=== PATIENT | male | born 1950 | race Two or more races ===

== ENCOUNTER 2018-01-07 09:17 | Emergency (ER) | payer MEDICARE ==
[2016-05-14 11:09] VITALS: Wt 71.2 kg
[2018-01-07] MEDS ORDERED: ALBUTEROL/IPRATROPIUM 3 ML NEB ONE (09:31)
[2018-01-07] MEDS ORDERED: ASPIRIN 81 MG CHEW PO ONE (09:35)
[2018-01-07] MEDS ORDERED: ALBUTEROL/IPRATROPIUM 3 ML NEB NEB ONE (09:35)
--- NOTE | 2018-01-07 09:57 | EKG ---
FACILITY: PATIENT NAME: MICHAEL OLGUIN : [id number] MR: [id number] V: [id number] EXAM DATE: ORDERING PHYSICIAN: FRANCY VELA TECHNOLOGIST: Test Reason : SOB Blood Pressure : / mmHG Vent. Rate : 134 BPM Atrial Rate : 134 BPM P-R Int : 152 ms QRS Dur : 066 ms QT Int : 282 ms P-R-T Axes : 084 049 085 degrees QTc Int : 421 ms Sinus tachycardia with occasional premature ventricular complexes Possible biatrial enlargement Indeterminate axis Low voltage QRS Poor R wave progression anteriorly Artifact in several leads - repeat if needed Abnormal ECG Confirmed by KRISHAN TEAGUE ([id number]) on 01/07/2018 2:47:43 PM Referred By: Confirmed By:KRISHAN TEAGUE
[2018-01-07] MEDS ORDERED: NS(*) 0.9% 1000 ML BAG 1,000 ML IV ONE ×2 (10:10→11:30)
--- NOTE | 2018-01-07 10:19 | ER Report ---
History and Physical Time Seen By MD: 09:25 Hx. of Stated Complaint: TROUBLE BREATHING HPI/ROS CHIEF COMPLAINT: Dysphagia HISTORY OF PRESENT ILLNESS: Patient is a 67-year-old male who presents emergency department complaining of difficulty swallowing, chest pressure pain and shortness of breath. Patient states over the last 3-4 days he is unable to swallow solid food although is tolerating liquids. Patient states he's had similar symptoms in the past and has had a "medical workup". He states that he had some type of study that showed he had narrowing in the esophagus but no obstruction. He was told to follow up and never did. There is a history of cardiac disease in the family. Patient also has a history of asthma and COPD and uses breathing treatments with exacerbations of shortness of breath. Patient states he's been noticing decrease in oral intake over the past 3-4 days including solid and liquids. He notes decreasing urine output and decrease in bowel movements. He denies abdominal pain. He denies fevers or chills. REVIEW OF SYSTEMS: Constitutional: No fever, no chills. Eyes: No discharge. ENT: No sore throat. Dysphagia Cardiovascular: Substernal chest pain, no palpitations Respiratory: Shortness of breath was following no cough Gastrointestinal: No abdominal pain, no vomiting. Genitourinary: No hematuria. Musculoskeletal: No back pain. Skin: No rashes. Neurological: No headache. Allergies: Coded Allergies: morphine (Unverified Allergy, Mild, 07/20/16) Home Meds Active Scripts Prednisone 10 Mg Tab (PREDNISONE 10 MG TAB) 10 Mg Tablet, 10 MG PO BID, #30 TAB 3 tabs qd X 3d 05/18, then 2 tabs qd X 3d, then 1.5 tabs qd X 4 days, then one tab daily until follow up with PCP. Prov:CHARLES TEAGUE MD 05/17/16 Omeprazole (OMEPRAZOLE) 20 Mg Tablet.dr, 20 MG PO QDAY, #30 TAB Prov:CHARLES TEAGEU MD 05/17/16 Guaifenesin (MUCINEX) 600 Mg Tablet.er, 600 MG PO BID, #20 TAB Prov:CHARLES TEAGUE MD 05/17/16 Aspirin (ASPIRIN EC) 81 Mg Tablet.dr, 81 MG PO QDAY, #30 TAB Prov:CHARLES TEAGUE MD 05/17/16 Reported Medications Prednisone (PREDNISONE) 20 Mg Tablet, 40 MG PO QDAY, TAB 05/14/16 Budesonide/Formoterol Fumarate (SYMBICORT 160-4.5 MCG INHALER) 10.2 Gm Inh, 10.2 GM INH QDAY, INH 05/14/16 Albuterol Sulfate 90 Mcg/Act (PROAIR HFA 90 MCG/ACT) 8.5 Gm Hfa.aer.ad, 1 PUFF IH DAILY, INHALER 05/14/16 Albuterol Sulfate 0.083% (ALBUTEROL SULFATE 0.083%) 2.5 Mg/3 Ml Vial.neb, 2.5 MG INH Q2H Y for SHORTNESS OF BREATH, INH 05/14/16 Ibuprofen (IBUPROFEN) 400 Mg Tablet, 1 TAB PO BID Y for PAIN, TAB 05/13/16 Pravastatin Sodium (PRAVASTATIN SODIUM) 80 Mg Tablet, 1 TAB PO DAILY, #30 05/13/16 Metoprolol Succinate (METOPROLOL SUCCINATE) 50 Mg Tab.er.24h, 1 TAB PO DAILY, # 30 05/13/16 Hydrochlorothiazide (HYDROCHLOROTHIAZIDE) 25 Mg Tablet, 1 TAB PO DAILY, #30 05/13/16 Enalapril Maleate (ENALAPRIL MALEATE) 20 Mg Tablet, 1 TAB PO DAILY, #45 05/13/16 Tiotropium [place] 2.5 MCG/ACT (Spiriva Respimat 2.5 MCG/ACT) 4 Gm Mist.inhal, 1 PUFF INH, #4 05/13/16 Discontinued Scripts Cefuroxime Axetil (CEFUROXIME) 500 Mg Tablet, 500 MG PO BID, #12 TAB Prov:CHARLES TEAGUE MD 05/17/16 Azithromycin (AZITHROMYCIN) 500 Mg Tablet, 1 TAB PO QDAY, #6 TAB Prov:CHARLES TEAGUE MD 05/17/16 Past Medical/Surgical History Medical history for esophageal reflux disease, asthma and COPD., History of hypertension Hx Smoking: Yes Smoking Status: Former Smoker Exposure to Second Hand Smoke?: Yes Hx Substance Use Disorder: No Hx Alcohol Use: No Constitutional Vital Sign - Last 24 Hours 01/07/18 01/07/18 01/07/18 01/07/18 09:17 09:24 09:27 09:32 Temp 97.7 Pulse ??? 144 123 Resp 30 19 B/P (MAP) 140/115 (123) 140/115 Pulse Ox 98 91 O2 Delivery Nasal Cannula 01/07/18 01/07/18 01/07/18 01/07/18 09:46 09:47 09:58 09:58 Pulse ??? 134 Resp 28 17 B/P (MAP) 116/100 (105) Pulse Ox 99 97 O2 Delivery Nasal Cannula O2 Flow Rate 2.0 01/07/18 01/07/18 01/07/18 01/07/18 10:00 10:02 10:02 10:15 Pulse 144 Resp 21 B/P (MAP) 93/69 (77) 105/87 (93) Pulse Ox 95 O2 Flow Rate 2.0 01/07/18 01/07/18 01/07/18 01/07/18 10:17 10:30 10:40 10:47 Pulse 131 132 Resp 21 41 B/P (MAP) 129/115 (120) 134/88 (103) Pulse Ox 95 93 01/07/18 01/07/18 01/07/18 01/07/18 10:52 11:00 11:07 11:20 Pulse 137 138 Resp 28 37 B/P (MAP) 111/92 (98) 87/70 (76) Pulse Ox 93 90 01/07/18 01/07/18 01/07/18 01/07/18 11:22 11:37 11:40 11:52 Pulse ? 109 Resp 23 22 12 B/P (MAP) ???/??? (9242) Pulse Ox 96 98 01/07/18 01/07/18 01/07/18 01/07/18 12:00 12:07 12:16 12:20 Pulse ??? B/P (MAP) ???/??? (6665) 146/114 (125) 105/77 (86) Physical Exam General/Constitutional: Patient is awake, alert, nontoxic and in no acute respiratory distress. Head: Normocephalic and atraumatic. Eyes: Conjunctival clear, Pupils are equal and reactive to light. Sclera are clear and anicteric. Ears:External canals are clear. Tympanic membranes are clear with normal landmarks and light reflex. Nares: No rhinorrhea or bleeding. Turbinates are pink and moist. Oropharyngeal: Mucous membranes are moist. There is no pharyngeal erythema or exudate. There are no palatal petechiae. Uvula is midline and symmetrical. Neck: Supple, no adenopathy. Cardiovascular: Heart is regular rate and rhythm without audible murmurs, rubs or gallops. Pulmonary: Lungs are clear to auscultation bilaterally. There are no wheezes, rales, or rhonchi. Chest rise is symmetrical Abdomen: Soft, nontender, no guarding or peritoneal signs. Extremities: No gross deformities, No peripheral cyanosis. Able to move all 4 extremities. Neuro: Alert and oriented X3, Skin: No rashes, skin is warm dry and well perfused. Medical Decision Making Data Points Result Diagram: 01/07/18 1000 01/07/18 1100 Laboratory Hematology Test 01/07/18 10:00 01/07/18 11:00 01/07/18 11:46 Red Blood Count 6.98 M/uL (4.00-5.60) Mean Corpuscular Volume 82.7 fL (80.0-96.0) Mean Corpuscular Hemoglobin 27.8 pg (26.0-33.0) Mean Corpuscular Hemoglobin Concent 33.6 g/dL (32.0-36.0) Red Cell Distribution Width 14.7 % (11.5-14.5) Mean Platelet Volume 7.9 fL (7.2-11.1) Neutrophils (%) (Auto) 85.4 % (39.4-72.5) Lymphocytes (%) (Auto) 6.1 % (17.6-49.6) Monocytes (%) (Auto) 7.3 % (4.1-12.4) Eosinophils (%) (Auto) 0.1 % (0.4-6.7) Basophils (%) (Auto) 1.1 % (0.3-1.4) Nucleated RBC Relative Count (auto) 0.1 /100WBC Neutrophils # (Auto) 13.5 K/uL (2.0-7.4) Lymphocytes # (Auto) 1.0 K/uL (1.3-3.6) Monocytes # (Auto) 1.2 K/uL (0.3-1.0) Eosinophils # (Auto) 0.0 K/uL (0.0-0.5) Basophils # (Auto) 0.2 K/uL (0.0-0.1) Nucleated RBC Absolute Count (auto) 0.02 K/uL B-Type Natriuretic Peptide 93 pg/ml (0-100) Prothrombin Time 13.4 seconds (12.0-14.4) Prothromb Time International Ratio 1.02 Activated Partial Thromboplast Time 27 seconds (23-35) Sodium Level 157 mmol/L (137-145) Potassium Level 4.1 mmol/L (3.5-5.0) Chloride Level 106 mmol/L (98-107) Carbon Dioxide Level 25 mmol/L (22-30) Blood Urea Nitrogen 50 mg/dl (9-21) Creatinine 1.90 mg/dl (0.66-1.25) Glomerular Filtration Rate Calc 35.5 Random Glucose 125 mg/dl (75-110) Calcium Level 10.3 mg/dl (8.4-10.2) Total Bilirubin 0.8 mg/dl (0.2-1.3) Aspartate Amino Transf (AST/SGOT) 49 U/L (0-35) Alanine Aminotransferase (ALT/SGPT) 17 U/L (0-56) Alkaline Phosphatase 116 U/L (0-126) Troponin I < 0.012 ng/ml Total Protein 9.0 g/dl (6.3-8.2) Albumin 5.0 g/dl (3.5-5.0) Osmolality 345 mOSM/K (275-295) Magnesium Level 2.9 mg/dl (1.7-2.2) Serum Alcohol < 10 mg/dl Chemistry Test 01/07/18 10:00 01/07/18 11:00 01/07/18 11:46 White Blood Count 15.8 k/uL (4.5-11.0) Red Blood Count 6.98 M/uL (4.00-5.60) Hemoglobin 19.4 g/dL (14.0-18.0) Hematocrit 57.7 % (42.0-52.0) Mean Corpuscular Volume 82.7 fL (80.0-96.0) Mean Corpuscular Hemoglobin 27.8 pg (26.0-33.0) Mean Corpuscular Hemoglobin Concent 33.6 g/dL (32.0-36.0) Red Cell Distribution Width 14.7 % (11.5-14.5) Platelet Count 451 K/uL (150-450) Mean Platelet Volume 7.9 fL (7.2-11.1) Neutrophils (%) (Auto) 85.4 % (39.4-72.5) Lymphocytes (%) (Auto) 6.1 % (17.6-49.6) Monocytes (%) (Auto) 7.3 % (4.1-12.4) Eosinophils (%) (Auto) 0.1 % (0.4-6.7) Basophils (%) (Auto) 1.1 % (0.3-1.4) Nucleated RBC Relative Count (auto) 0.1 /100WBC Neutrophils # (Auto) 13.5 K/uL (2.0-7.4) Lymphocytes # (Auto) 1.0 K/uL (1.3-3.6) Monocytes # (Auto) 1.2 K/uL (0.3-1.0) Eosinophils # (Auto) 0.0 K/uL (0.0-0.5) Basophils # (Auto) 0.2 K/uL (0.0-0.1) Nucleated RBC Absolute Count (auto) 0.02 K/uL B-Type Natriuretic Peptide 93 pg/ml (0-100) Prothrombin Time 13.4 seconds (12.0-14.4) Prothromb Time International Ratio 1.02 Activated Partial Thromboplast Time 27 seconds (23-35) Glomerular Filtration Rate Calc 35.5 Calcium Level 10.3 mg/dl (8.4-10.2) Total Bilirubin 0.8 mg/dl (0.2-1.3) Aspartate Amino Transf (AST/SGOT) 49 U/L (0-35) Alanine Aminotransferase (ALT/SGPT) 17 U/L (0-56) Alkaline Phosphatase 116 U/L (0-126) Troponin I < 0.012 ng/ml Total Protein 9.0 g/dl (6.3-8.2) Albumin 5.0 g/dl (3.5-5.0) Osmolality 345 mOSM/K (275-295) Magnesium Level 2.9 mg/dl (1.7-2.2) Serum Alcohol < 10 mg/dl Coagulation Test 01/07/18 11:00 Prothrombin Time 13.4 seconds Prothromb Time International Ratio 1.02 Activated Partial Thromboplast Time 27 seconds Toxicology Test 01/07/18 11:46 Serum Alcohol < 10 mg/dl EKG/Imaging EKG Interpretation EKG shows sinus tachycardia with occasional PVCs. No significant ST segment or T -wave abnormalities noted. Monitor Interpretation: Sinus Tachycardia Imaging FACILITY: [facility] PATIENT NAME: Carlos Prince : 09/29/1973 MR: [id number] V: [id number] EXAM DATE: [id number] ORDERING PHYSICIAN: FRANCY VELA TECHNOLOGIST: Location: [facility] [place] Patient: Carlos Prince : 09/29/1973 Visit/Account:[id number] Date of Sevice: 01/07/2018 Exam type: ELBOW 3 VIEWS RIGHT History: pain; radial head, no known injury Comparison: None. Findings: There is no evidence of a joint effusion. There is a thin horizontal sclerotic band traversing the right radial head which could represent a growth plate remnant or possibly the sequelae of old trauma. No evidence of acute fracture seen. No significant arthritic change identified right elbow joint IMPRESSION: 1. Thin horizontal sclerotic band traverses the right radial head which could represent a growth plate remnant or possibly the sequelae of old trauma. No acute appearing fractures identified. No evidence of a joint effusion Report Dictated By: Jacinta Freed MD at 01/07/2018 9:12 AM Report E-Signed By: Jacinta Freed MD at 01/07/2018 9:14 AM WSN:[email or web address] FACILITY: [facility] PATIENT NAME: Eduardo Hankins : 1950 MR: [id number] V: [id number] EXAM DATE: ORDERING PHYSICIAN: FRANCY VELA TECHNOLOGIST: Location: [facility] [place] Patient: Eduardo Hankins : 1950 Visit/Account:[id number] Date of Sevice: 01/07/2018 Exam type: ESOPHAGRAM History: dysphagia Comparison: May 15, 2016. Findings: The patient received two small sips of thin barium demonstrating complete obstruction at the junction of the middle distal thirds of the left esophagus. The margins appear irregular. Although this could represent retained food bolus given the prior findings of this high-grade narrowing this finding is extremely concerning for malignancy. The fluoroscopy dose area product was 42.59 micro-Chairez per meter squared IMPRESSION: 1. There is complete obstruction at the junction of middle distal thirds of the esophagus with irregular margins concerning for malignancy Report Dictated By: Jacinta Freed MD at 01/07/2018 12:24 PM Report E-Signed By: Jacinta Freed MD at 01/07/2018 12:56 PM WSN:[email or web address] ED Course/Re-evaluation ED Course 01/07/2018 12:42:35 pm spoke with our general surgeon Dr. Tom Oconnell; history physical exam, pertinent lab data and imaging studies were discussed. Patient was esophageal obstruction. He states that he is able to do diagnostic endoscopies but does not do dilatation which is what the patient most likely will require. He recommends transfer to a higher level of care. Patient and family were made aware they have no questions or concerns at time of disposition. 01/07/2018 1:42:15 pm I spoke with [facility] regarding this patient. Beds are full but they have accepted the patient at [facility] at this time. Patient with esophageal obstruction likely secondary to carcinoma. They have accepted the patient. Family and patient made aware of transfer no questions or concerns at time of disposition. Decision to Disposition Date: Jan 07, 2018 Decision to Disposition Time: 13:41 Depart Departure Latest Vital Signs Vital Signs Date Time Temp Pulse Resp B/P (MAP) Pulse Ox O2 Delivery O2 Flow Rate FiO2 01/07/18 12:20 105/77 (86) 01/07/18 12:07 ??? 01/07/18 11:52 12 98 01/07/18 10:02 2.0 01/07/18 09:58 Nasal Cannula 01/07/18 09:27 97.7 Impression: Primary Impression: Esophageal obstruction Condition: Condition Unchanged Disposition: XFER TO [facility] (to [facility] for eval/tx) FRANCY VELA MD Jan 07, 2018 10:19
[2018-01-07 10:42] LABS: PLATELET COUNT, AUTOMATED 451 K/uL (150-450)
[2018-01-07 11:16] LABS: INR 1.02
--- NOTE | 2018-01-07 12:02 | RADIOLOGY IMAGING REPORT ---
FACILITY: [facility] [place]IENT NAME: Eduardo Hankins : 1950 MR: [id number] V: [id number] EXAM DATE: ORDERING PHYSICIAN: FRANCY VELA TECHNOLOGIST: [place] [facility] [place]: Eduardo Hankins : 1950 Visit/Account:[id number] Date of Sevice: 01/07/2018 Study: Frontal and lateral views of the chest Indication: Cough Comparison study: May 13, 2016 Findings: PA and lateral views of the chest demonstrate no evidence of acute infiltrate. There is no evidence of pleural effusion. There is no evidence of pneumothorax. The mediastinal, cardiac, and diaphragmatic contours are unremarkable. The visualized bony structures are unremarkable. There are mild degenerative changes of the thoracic spine noted. IMPRESSION: Unremarkable chest. Report Dictated By: Jarret Candelaria at 01/07/2018 11:56 AM Report E-Signed By: Jarret Candelaria at 01/07/2018 11:57 AM WSN:[id number]
[2018-01-07] MEDS ORDERED: BARIUM SULFATE 340 GM POWD ONE (12:05)
[2018-01-07] MEDS ORDERED: BARIUM SULFATE 176 GM BTL PO ONE (12:05)
--- NOTE | 2018-01-07 13:01 | RADIOLOGY IMAGING REPORT ---
FACILITY: [facility] PATIENT NAME: Eduardo Hankins : 1950 MR: [id number] V: [id number] EXAM DATE: ORDERING PHYSICIAN: FRANCY VELA TECHNOLOGIST: Location: [facility] [place] Patient: Eduardo Hankins : 1950 Visit/Account:[id number] Date of Sevice: 01/07/2018 Exam type: ESOPHAGRAM History: dysphagia Comparison: May 15, 2016. Findings: The patient received two small sips of thin barium demonstrating complete obstruction at the junction of the middle distal thirds of the left esophagus. The margins appear irregular. Although this cou ld represent retained food bolus given the prior findings of this high-grade narrowing this finding i s extremely concerning for malignancy. The fluoroscopy dose area product was 42.59 micro-Chairez per meter squared IMPRESSION: 1. There is complete obstruction at the junction of middle distal thirds of the esophagus with irreg ular margins concerning for malignancy Report Dictated By: Jacinta Freed MD at 01/07/2018 12:24 PM Report E-Signed By: Jacinta Freed MD at 01/07/2018 12:56 PM WSN:[email or web address]
[2018-01-07] MEDS ORDERED: LORazepam 2 MG/ML VIAL IVP ONE (13:15)
[2018-01-07] MEDS ORDERED: fentaNYL CITR 100 MCG/2 ML AMP IVP ONE (13:15)
== END 2018-01-07 14:25 | disposition short-term general hospital (02) ==
LOC: ER 09:31
DX: K22.2 Esophageal obstruction (principal); R05 Cough; I10 Essential (primary) hypertension
CPT/HCPCS: 36415; 71046; 74220; 83735; 83880; 83930; 84484; 85025; 85610; 85730; 93005; 94640; 96361; 96374; 96375; 99285; A9270; G0480; J2060; J3010; J7030; 80320; 82040; 82247; 82310; 82374; 82435; 82565; 82947; 84075; 84132; 84155; 84295; 84450; 84460; 84520

== ENCOUNTER → 2018-01-07 | Outpatient (CLI) | payer MEDICARE ==
[2016-05-14 11:09] VITALS: BMI 27.8
[~2018-01-07] MED LIST: ACE325 PO; ALBU2.5V36 IH; ALBU2.5V36 INH; ALBU8.5H IH; ALBU8.5H PO; ASP325 PO; ASPI81TA86 PO; AZIT-18 PO; AZIT500T47 PO; BACDS PO; BUDE10.2 INH; BUDE10.2 PO; CEFU500T10 PO; ENAL1TAB35 PO; ENAL20TA99 PO; FLUT1DIS28 PO; FLUT1DIS29 IH; GUAI600T57 PO; HYDR-2966 PO; IBUP400T13 PO; METO50TA19 PO; OMEP-125 PO; OMEP-137 PO; PRAV80TA29 PO; PRED-1 PO; PRED20TA6 PO; TAMS0.4C70 PO; TIOT4MIS2 INH
== END ==
LOC: AMB 14:25
PROVIDERS: ATTEND Nurse Practitioner
DX: R13.10 Dysphagia, unspecified (principal); K22.2 Esophageal obstruction; R25.1 Tremor, unspecified
CPT/HCPCS: A0425; A0426

== ENCOUNTER 2018-02-07 03:43 | Day surgery (SDC) | payer MEDICARE ==
[2016-05-14 11:09] VITALS: Ht 165.1 cm; Wt 62.1 kg
[2018-02-07] VITALS (7 sets, daily range): BP systolic 107–126; BP diastolic 69–77
[~2018-02-07] VITALS: Ht 165.1 cm; Wt 62.1 kg
[~2018-02-07 03:43] MED LIST changes: +ALB18R INH; +FLUT1AER INH; +ONDA4TAB97 PO; +PROC5TAB2 PO; +TRAM-420 PO
[2018-02-07] MEDS ORDERED: ceFAZolin(*) 2GM/D5W 50ML 50 ML IVPB ONE (06:30)
[2018-02-07] MEDS ORDERED: NORMOSOL R SOLN(*) 1000 ML BAG 1,000 ML IV PRN (06:30)
[2018-02-07] MEDS ORDERED: LIDOCAINE/SOD BICARB 8.4% SYR ID ONE (06:30)
[2018-02-07] MEDS ORDERED: FAMOTIDINE 20 MG TAB PO ONE (06:30)
[2018-02-07] MEDS ORDERED: MIDAZOLAM 2 MG/2 ML VIAL IVP PRN (06:30)
[2018-02-07] MEDS ORDERED: HEPARIN SOD LCK FLSH 100 UN/ML ONE (06:49)
[2018-02-07] MEDS ORDERED: NS(*) 0.9% 10 ML VIAL 20 ML ONE (06:50)
[2018-02-07] MEDS ORDERED: ROPIVACAINE 0.5% 20 ML VIAL ONE (06:50)
[2018-02-07] MEDS ORDERED: REMIFENTANIL HCL 1 MG VIAL ONE (07:33)
[2018-02-07] MEDS ORDERED: MIDAZOLAM 2 MG/2 ML VIAL ONE (07:38)
[2018-02-07] MEDS ORDERED: METOPROLOL TART 5 MG/5 ML VIAL ONE (08:09)
[2018-02-07] MEDS ORDERED: PROPOFOL EMUL(*) 10MG/ML 20 ML 20 ML ONE (08:10)
[2018-02-07] MEDS ORDERED: ONDANSETRON 4 MG/2 ML VIAL ONE (08:10)
[2018-02-07] MEDS ORDERED: DEXAMETHASONE SOD PHOS 10MG/ML ONE (08:10)
[2018-02-07] MEDS ORDERED: FLUMAZENIL 0.1 MG/ML 5 ML VIAL ONE (08:25)
[2018-02-07] MEDS ORDERED: OXYC-373 PO (08:38)
--- NOTE | 2018-02-07 08:43 | Short(Outpt) Discharge Summary ---
Discharge Summary Reason for Hosp/Final Diag: (1) Esophageal cancer, stage IV Status: Chronic Hospital Course & Plan: Right IJ Power Port placement completed without problems. Departure Discharge to: Home, Self Care Discharge Instructions Home Meds Active Scripts Oxycodone Hcl/Acetaminophen (OXYCODONE-ACETAMINOPHEN 5-325) 1 Each Tablet, 1 TAB PO Q4H PRN for PAIN, #20 TAB 0 Refills Prov:JOSE BETANCOURT MD 02/07/18 Tramadol Hcl (TRAMADOL HCL) 50 Mg Tablet, 50-100 MG PO Q4-6H, #60 TAB Prov:CHARLIE ARREAGA MD 01/27/18 Omeprazole (OMEPRAZOLE) 20 Mg Tablet., 20 MG PO QDAY, #30 TAB Prov:CHARLES TEAGUE MD 05/17/16 Aspirin (ASPIRIN EC) 81 Mg Tablet.dr, 81 MG PO QDAY, #30 TAB Prov:CHARLES TEAGUE MD 05/17/16 Reported Medications Fluticasone/Vilanterol 100/25 Mcg/Inh (BREO ELLIPTA 100/25 MCG) 1 Each Aer.pow.ba, 1 INH INH BID, INH 02/05/18 Albuterol Sulfate (VENTOLIN HFA) 18 Gm Inh, 2 PUFF INH Q4-6H PRN for DYSPNEA, INH 02/05/18 Albuterol Sulfate 90 Mcg/Act (PROAIR HFA 90 MCG/ACT) 8.5 Gm Hfa.aer.ad, 1 PUFF IH DAILY, INHALER 05/14/16 Albuterol Sulfate 0.083% (ALBUTEROL SULFATE 0.083%) 2.5 Mg/3 Ml Vial.neb, 2.5 MG INH Q2H PRN for SHORTNESS OF BREATH, INH 05/14/16 Pravastatin Sodium (PRAVASTATIN SODIUM) 80 Mg Tablet, 1 TAB PO DAILY, #30 05/13/16 Metoprolol Succinate (METOPROLOL SUCCINATE) 50 Mg Tab.er.24h, 1 TAB PO DAILY, #30 05/13/16 Hydrochlorothiazide (HYDROCHLOROTHIAZIDE) 25 Mg Tablet, 1 TAB PO DAILY, #30 05/13/16 Enalapril Maleate (ENALAPRIL MALEATE) 20 Mg Tablet, 1 TAB PO DAILY, #45 05/13/16 Discontinued Reported Medications Prednisone (PREDNISONE) 20 Mg Tablet, 40 MG PO QDAY, TAB 12/26/16 Budesonide/Formoterol Fumarate (SYMBICORT 160-4.5 MCG INHALER) 10.2 Gm Inh, 10.2 GM INH QDAY, INH 05/14/16 Ibuprofen (IBUPROFEN) 400 Mg Tablet, 1 TAB PO BID PRN for PAIN, TAB 05/13/16 Tiotropium Cassatt 2.5 MCG/ACT (Spiriva Respimat 2.5 MCG/ACT) 4 Gm Mist.inhal, 1 PUFF INH, #4 05/13/16 Discontinued Scripts Ondansetron Hcl (ZOFRAN) 4 Mg Tablet, 4 MG PO Q6H PRN for NAUSEA, #30 TAB 2 Refills Prov:CHARLIE ARREAGA MD 01/27/18 Prochlorperazine Maleate (Compazine) 5 Mg Tablet, 5-10 MG PO Q6H PRN for NAUSEA, #30 TAB 5 Refills Prov:HCARLIE ARREAGA MD 01/27/18 Prednisone 10 Mg Tab (PREDNISONE 10 MG TAB) 10 Mg Tablet, 10 MG PO BID, #30 TAB 3 tabs qd X 3d 05/18, then 2 tabs qd X 3d, then 1.5 tabs qd X 4 days, then one tab daily until follow up with PCP. Prov:CHARLES TEAGUE MD 05/17/16 Guaifenesin (MUCINEX) 600 Mg Tablet.er, 600 MG PO BID, #20 TAB Prov:CHARLES TEAGUE MD 05/17/16 Diet: Regular Activity: As Tolerated Special Instructions: You may shower starting on 02/09/18, but don't immerse the incisions for 2 weeks. Leave the steristrips in place on the incisions until they fall off on their own. There is a suture in the skin on your right neck that SHOULD fall out in the next 2 weeks. If it doesn't, in 2 weeks, gently tug on the knot and see if it comes out. If it doesn't, you can have someone at the cancer center remove it or you can call my office at [phone] and we'll have you come in so we can remove the suture. JOSE BETANCOURT MD Feb 07, 2018 08:43
--- NOTE | 2018-02-07 08:49 | Post Operative Progress Note ---
Post Operative Progress Note Date: Feb 07, 2018 Time: 08:44 Surgeon: Sumit Dictation number: [id number] Anesthesia: GETA by Dr. Ceja Pre-Op Diagnosis: Stage IV esophageal cancer Post-Op Diagnosis: NIKITA Findings: None Procedure(s): Right IJ Power Port placement Specimen Removed:(May be N/A): None Complications: None Fluids: See anesthesia record Estimated Blood Loss: Minimal Date OP Note Dictated: Feb 07, 2018 Time OP Note Dictated: 08:45 JOSE BETANCOURT MD Feb 07, 2018 08:49
--- NOTE | 2018-02-07 09:13 | OPERATIVE REPORT 1 ---
EVENT DATE: February 07, 2018 SURGEON: Hernandez Arana M.D. ANESTHESIOLOGIST: Stuart Ceja M.D. ANESTHESIA: General endotracheal. PREOPERATIVE DIAGNOSIS Stage IV esophageal cancer. POSTOPERATIVE DIAGNOSIS Stage IV esophageal cancer. PROCEDURE PERFORMED Right internal jugular (IJ) PowerPort placement. COMPLICATIONS None. ESTIMATED BLOOD LOSS Minimal. INDICATIONS This is a 67-year-old gentleman who is currently about to start palliative therapy for stage IV esophageal cancer. He has been referred to me by the Cancer Center for PowerPort placement to facilitate this. The anesthesiologist feels that general endotracheal anesthesia is the best way to complete this given the esophageal stent to minimize the risk of aspiration. DESCRIPTION OF PROCEDURE The patient was brought to the operating room and placed supine on the operating table. General endotracheal anesthesia was administered and his right chest, neck and shoulder were prepped and draped in the sterile fashion. A time-out was completed. With the patient in Trendelenburg, I used the ultrasound to identify the right IJ and then used the access needle and was able to access the right IJ on one attempt. I threaded the wire through the needle and then removed the needle. I used the C-arm fluoroscope to image the wire, which I confirmed it to be in the SVC. I then anesthetized the skin the neck as well as the right infraclavicular skin and then made a stab incision in the neck where the wire enters the skin and then made a transverse incision in the right infraclavicular area. I dissected through the dermis and the subcutaneous fat and then created a pocket caudad to the incision. I made sure this was hemostatic. I used the tunneler and pulled the catheter from the pocket up into the stab incision of the neck using the tunneler. With the patient in Trendelenburg, I then threaded the dilator and sheath over the wire and then confirmed good position of this in the SVC with fluoroscope and removed the dilator and wire and then threaded the catheter through the sheath and removed the sheath. Under fluoroscopic guidance, I then pulled the catheter back so the tip was in the SVC just above the right atrium. I then cut the catheter length and placed the port on the catheter and locked into place with locking flange. I then secured the port to the underlying fascia with 2-0 Nylon at the corners. I then took some more C-arm images to confirm good position and no kinks or twists and it looked good. I then aspirated blood from the catheter and port and flushed it with 10 cc of normal saline and then I followed this with 5 cc of 100 units/cc heparinized saline for a total of 500 units of heparin. It aspirated and flushed without any problems. I then closed the stab incision in the neck with a single 3-0 chromic suture and the incision in the right infraclavicular area was closed with interrupted 3-0 Vicryl deep dermal sutures and 4-0 Monocryl running subcuticular sutures. The skin was cleaned and dried and steri-strips applied over each incision. The patient was awakened and extubated in the operating room and transported to the recovery room in stable condition, having tolerated the procedure without any apparent problems. A portable chest x-ray is now pending in recovery. NEEMA
--- NOTE | 2018-02-07 09:49 | RADIOLOGY IMAGING REPORT ---
FACILITY: [facility] - [place] PATIENT NAME: Eduardo Hankins : 1950 MR: [id number] V: [id number] EXAM DATE: ORDERING PHYSICIAN: JOSE BETANCOURT TECHNOLOGIST: Location: [facility] [place] Patient: Eduardo Hankins : 1950 Visit/Account:[id number] Date of Sevice: 02/07/2018 Exam type: CHEST SINGLE AP History: Right IJ Power Port placement Comparison: January 07, 2018. Findings: There has been placement of a right IJ port with the distal tip projecting over the superior vena cav a. No pneumothorax is seen. This mild chronic peribronchial thickening and mild chronic interstitia l prominence throughout the lungs. There is blunting of left costophrenic angle which may be related to pleural thickening versus small left pleural effusion. Prominence of the central pulmonary arter ies bilaterally. Cardiac silhouette is normal IMPRESSION: 1. Interval placement of a right IJ catheter distal tip projects over the superior vena cava with no evidence of a pneumothorax Blunting of left costophrenic angle consistent with a small left pleural effusion versus pleural thic kening Report Dictated By: Jacinta Freed MD at 02/07/2018 9:14 AM Report E-Signed By: Jacinta Freed MD at 02/07/2018 9:46 AM WSN:[email or web address]
--- NOTE | 2018-02-07 10:14 | RADIOLOGY IMAGING REPORT ---
FACILITY: [facility] - [place] PATIENT NAME: Eduardo Hankins : 1950 MR: [id number] V: [id number] EXAM DATE: ORDERING PHYSICIAN: JOSE BETANCOURT TECHNOLOGIST: Location: [facility] - [place] Patient: Eduardo Hankins : 1950 Visit/Account:[id number] Date of Sevice: 02/07/2018 Exam type: C-ARM FLUORO PORT/CATH History: PORT PLACEMENT Comparison: Findings: Four intraoperative spot views of the upper thorax were submitted demonstrate placement of a right IJ port. The distal tip projects over the expected location of the superior vena cava. The total cont inuous fluoroscopy dose was 0.46508 mGray per meter squared IMPRESSION: 1. As above Report Dictated By: Jacinta Freed MD at 02/07/2018 9:48 AM Report E-Signed By: Jacinta Freed MD at 02/07/2018 10:10 AM WSN:[email or web address]
[2018-02-10] MEDS ORDERED: HYDR-385 PO (12:38)
== END 2018-02-07 09:45 | disposition home or self-care (01) ==
LOC: OR 03:43
PROVIDERS: ATTEND Surgery
DX: C15.9 Malignant neoplasm of esophagus, unspecified (principal)
CPT/HCPCS: 36561; 71045; 77001; J1100; J1642; J2250; J2405; J2704; J2795; J3490; C1788; J0690

== ENCOUNTER 2018-02-26 10:00 | Outpatient (RCR) | payer MEDICARE ==
[2016-05-14 11:09] VITALS: BMI 27.8
[~2018-02-26 10:00] MED LIST changes: +HYDR-385 PO; +ONDA-2 PO; +OXYC-373 PO; +PROC10TA4
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
[2018-03-12] MEDS ORDERED: DIPH-740 PO (09:44)
[2018-03-12] MEDS ORDERED: PSEU120T69 PO (09:44)
[2018-04-23] MEDS ORDERED: METH4TAB66 PO (09:37)
[2018-05-26] MEDS ORDERED: PROC10TA4 PO (12:44)
[2018-05-26] MEDS ORDERED: ONDA4TAB9 PO (12:44)
== END 2018-05-27 ==
LOC: PT 10:00
PROVIDERS: ATTEND Internal Medicine Hematology
DX: C15.9 Malignant neoplasm of esophagus, unspecified (principal); R53.83 Other fatigue; Z99.81 Dependence on supplemental oxygen
CPT/HCPCS: 97161

== ENCOUNTER 2018-04-23 08:30 | Outpatient (RCR) | payer MEDICARE ==
[2016-05-14 11:09] VITALS: Ht 161.4 cm; Wt 57.8 kg
[2018-01-27 09:21] VITALS: BP 94/76
[2018-01-27 10:44] LABS: PLATELET COUNT, AUTOMATED 461 K/uL (150-450)
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
[2018-01-31 13:02] VITALS: BP 113/75
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
[2018-02-10 12:04] VITALS: BP 116/71
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
--- NOTE | 2018-02-11 22:50 | Pharmacy Note ---
Pharmacy Note Note: Clinical Pharmacist Note: Chemotherapy Education Visit Date: 02/11/18 Chemotherapy Regimen: FOLFOX x 12 or until unacceptable toxicity or The regimen includes 5-Fluorouracil, Oxaliplatin and Leucovorin The schedule of treatment administration was explained in detail to the patient in regards to lab visits, timing and sequence of premedications and chemotherapy, followed by any supportive medications to be given. Discussed the purpose of the port and why we administer chemotherapy through a port. Port placed prior to chemo ed appointment. Discussed the need for CADD pump to be worn for 46 hours. Patient's diagnosis, treatment plan, and intent of treatment along with goals are outlined on the signed consent form, that was reviewed and signed at the end of this appointment. The goal is palliative treatment (symptom control without cure from disease). The potential for drug/drug interaction and drug/food interactions were explained to the patient. Patient was instructed to report any new medications to the office. A medication reconciliation was reviewed by the pharmacist temitope potts. We reviewed and discussed toxicities of supportive care medications and how to appropriately use supportive medications including the schedule of anti-emetics. These medications include the following: Take home medications: ondansetron, prochlorperazine, lorazepam Pre-medications: palonosetron, dexamethasone Supportive Medications: none at this time We have also discussed the potential for long and short term side effects of chemotherapy including, but not limited to the side effects outlined below: -Low WBCs or neutropenia: Patient may experience bone marrow toxicity that would increase their risk for infection. Patient is aware to look for signs and symptoms of infection (e.g. fever of higher than 100.4F, chills, sore throat, etc.) and knows what number to call and when to contact the clinic. Advised patient of things they can do such as wash hands with soap and water often, avoid people who are sick, and avoid crowds during times of low blood counts (typically 7-10 days post chemotherapy). - Low RBCs or anemia: Anemia is when you don't have enough red blood cells to carry oxygen through your body, which causes fatigue, weakness, lightheadedness, pale skin, SOB, or headaches. Discussed the importance of getting enough restful sleep at night and eating a diet rich in iron. Lab values will be closely monitored to check your RBCs. Advised patient to contact the clinic if they have a fast heart rate, dizziness, or lightheadedness. -Low platelet counts or thrombocytopenia: Patient may experience low platelets which can lead to increased risk of bleeding, easy bruising, black or bloody stools, or small red or purple spots on the skin. Platelets help blood to clot and if your platelets are low enough, bleeding may not stop after a few minutes. Excessive bleeding or bruising, red spots on your skin or new onset headaches require a phone call to the clinic. - Fatigue (feeling tired): Some patients may experience fatigue, or feel tired, weak, low energy, drained or exhausted. You will experience fatigue after chemotherapy, but the amounts for each person and chemotherapy will differ. Advised patient to stay active as much as they can with light exercise, take short naps if needed, get a restful night of sleep, and eat a well-balanced diet. Call the clinic if you are unable to get out of bed or do typical daily activities, have shortness of breath, or have trouble walking small distances. -Nausea or vomiting: Most patients may experience some level of nausea (feeling queasy or sick to your stomach) or vomiting. Advised patient to take their anti-nausea medications as prescribed, drink plenty of fluids, eat several small meals throughout the day, eat bland easy to digest foods, and speak to our bellhop if they have questions. Call the clinic if the nausea or vomiting is not eased by your medications and lasts 12 hours or longer, or if unable to eat or drink, or keep medicines down. - Appetite changes (eating less or more): You may experience a decrease or increase in your appetite that might last a day, weeks or months. Advised patient to set a schedule for eating and drink high protein drinks to maintain calories. Ask your doctor or nurse for a bellhop consult to help manage your appetite changes or if you have concerns about your appetite changes. Contact the clinic if you notice a change in weight and if you are unable to take in more than a few bites of food or sips of liquid at mealtimes. Favorite foods may also taste different or may not be pleasing. -Mouth sores and oral care (mucositis or stomatitis): Patient was informed that they may experience taste changes, dry mouth, and potential mouth sores due to the chemotherapy. The best way to prevent and treat mouth sores is to do routine mouth care each day. If mouth sores occur, use mouth rinses with baking soada, alst and warm water after meals and before bed (dissolve 2 TBSP of baking soda and 1/2 tsp of salt in 8 oz of warm water--swish and spit). Avoid mouthwashes with alcohol and spicy food if mouth sores exist. If dry mouth occurs, sucking on ice chips or sugar free hard candy can help. -Neuropathy/cold-induced neuropathy (numbness-pins and needles-tingling): Patient may experience acute and chronic neuropathy that can potentially be irreversible due to the chemotherapy. The patient is advised to report symptoms to the clinic if they experience burning, tingling, and numbness in the hands, feet, face or mouth. Re-iterated the importance of drinking room temperature/hot beverages or foods and avoidance of ice/cold beverages/food as cold temperatures may cause laryngospasms and may exacerbate neuropathy. Cold temperatures may also worsen symptoms of neuropathy in hands and feet. -Cardiotoxicity: Patient may experience cardiotoxicity as a result of chemotherapy. QT prolongation and ventricular arrhythmias may occur. Close monitoring of electrolytes is important as well as drug interactions. Patient to report any symptoms of CV changes such as dizziness, palpitations, or fluid retention. -Skin Problems/ Hand Foot Syndrome (PPE): Some patients may experience a variety of symptoms including: rash, dry/cracked skin, red/inflammed skin, brittle/cracked/yellow nails, red/blistering skin near the areas of radiation, sunburn easily, and itching. Advised patient that they can moisturize their skin daily, use sunscreen, use mild soaps when washing the skin and to avoid products with perfumes, dyes, or alcohol. Regarding fingernails specifically, patient is advised to keep their nails short and trimmed. Patient to report swelling, tightness, pain, redness in the palms and soles of the feet, blisters or skin sloughing on the palms of the hands and feet. -Hepatotoxicity: close monitoring of LFTs will be done through lab work, doses will be adjusted based on end organ function -Hypersensitivity Reaction: Patients may experience hypersensitivity reaction may include bronchospasm, erythema, hypotension, rash, and/or hives. Pt is aware to report any symptoms of reaction during infusion. -Extravasation with vesicant/irritant: The patient is receiving a vesicant as part of their chemotherapy regimen. While the risk of extravasation with a port is very low, there is still a risk. Discussed what a vesicant is and that extravasation of a vesicant can lead to severe local tissue injury and necrosis requiring surgical intervention and possible skin grafting. Patient was educated to report any pain or burning at the port site PATRICIA. -Other Toxicities: Electrolyte changes, nephrotoxicity, and pulmonary toxicity: Patient will be monitored closely for toxicities listed. Lab work will be reviewed weekly and the patient will be notified with these changes and if there are changes, may need additional follow up and testing. Patient was given the Standard Chemotherapy Education Binder with appropriate phone numbers and we reviewed symptoms that would prompt a call to the clinic. Upcoming appointments were discussed and patient knows to follow up at the front office specialist to get print outs of their schedule and the processes to change/cancel an appointment. Consent was reviewed with the patient and signed in my presence. The treating physician will review and sign the consent. Allergies were reviewed: Morphine At the end of this discussion, the patient and his nephew verbalized understan ding of the provided education and information and all of their questions were answered to their satisfaction. Patient and his nephew know how to reach me if further questions or concerns come up. Time spent with the patient: 90 minutes, with all 90 minutes being spent counseling on the detailed information above. Susan Louie, PharmD, BCSUSAN BURGOS Feb 11, 2018 22:50
[2018-02-12 08:38] VITALS: BP 113/88
[2018-02-12] MEDS: PALONOSETRON 0.25 MG/5 ML VIAL IVP PRN (09:19)
[2018-02-12] MEDS: LIDOCAINE/SOD BICARB 8.4% SYR ID PRN (09:19)
[2018-02-12] MEDS: DEXAMETHASONE SOD PHOS 10MG/ML IVP PRN (09:19)
[2018-02-12] MEDS: NS(*) 0.9% 500 ML BAG 500 ML IV PRN (09:20)
[2018-02-12] MEDS: DEXTROSE 5%(*) 100 ML BAG 100 ML IVPB PRN (09:20)
[2018-02-12 12:05] VITALS: BP 124/86
[2018-02-14 11:02] VITALS: BP 109/86
[2018-02-14] MEDS: HEPARIN FLSH (PORT) 500 UN/5ML IVP PRN (14:02)
[2018-02-26] MEDS: LIDOCAINE/SOD BICARB 8.4% SYR ID PRN (09:39)
[2018-02-26] MEDS: NS(*) 0.9% 500 ML BAG 500 ML IV PRN (09:39)
[2018-02-26 09:51] VITALS: BP 119/76
[2018-02-26] MEDS: PALONOSETRON 0.25 MG/5 ML VIAL IVP PRN (10:58)
[2018-02-26] MEDS: DEXAMETHASONE SOD PHOS 10MG/ML IVP PRN (10:58)
--- NOTE | 2018-02-26 16:40 | Medical Nutrition Therapy ---
Nutrition Anthropometrics Height (Inches): 63.53 Height (Calculated Centimeters: 161.3662 Weight (Pounds): 137 Hx Weight Loss: Yes (pt states his weight 6 months ago was ~150lbs) Nutritional Education Nutrition Education Topic: Other (Eating hints during Cancer Treatment ) Learning Readiness: Interested Teaching Methods: Discussion, Handout Response to Teaching: Verbalize understanding Teaching Recipient: Patient, Family Nutrition Counseling: Reviewed handout on Eating during Cancer Treatment, discussed potential nutrition impact symptoms and encouraged patient to review information specific to symptoms he may experience. Encouraged him to review the section on nausea and ideas on increasing calories Nutrition Monitoring & Eval Nutrition Goals: Eat 75-100% Meal, Drink > 2 liters/day Nutritional Goals Comment: maintain or gain wt, drink 2 ensure/boosts/day, eat 2-3 meals/day Nutrition Follow-Up: Taking Snack Supplement, Fair Intake Nutrition Monitoring: Pt states his swallowing and po intake have improved since having surgery I will provide additional education and recommendations as needed RD Patient Assessment Time: [address] Assessment Type: RD Education Patient Nutrition Acuity: 2-Moderate Nutritional Comment: Encouraged patient to call or let RN know if he would like to discuss any nutrition issues with me. VIOLETTE BROWN RDN, SHELBY Feb 26, 2018 16:40
[2018-02-28] MEDS: HEPARIN FLSH (PORT) 500 UN/5ML IVP PRN (11:45)
[2018-02-28 16:05] VITALS: BP 89/60
[2018-03-10 10:10] VITALS: BP 114/78
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
[2018-03-12 09:34] VITALS: BP 104/67
[2018-03-12] MEDS: NS(*) 0.9% 500 ML BAG 500 ML IV PRN (09:42)
[2018-03-12] MEDS: LIDOCAINE/SOD BICARB 8.4% SYR ID PRN (09:42)
[2018-03-12] MEDS: HEPARIN FLSH (PORT) 500 UN/5ML IVP PRN (10:54)
[2018-03-12 11:13] VITALS: BP 92/57
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
[2018-03-19 09:15] VITALS: BP 136/88
[2018-03-19 09:50] VITALS: BP 113/70
[2018-03-19] MEDS: DEXAMETHASONE SOD PHOS 10MG/ML IVP PRN (10:34)
[2018-03-19] MEDS: PALONOSETRON 0.25 MG/5 ML VIAL IVP PRN (10:35)
[2018-03-19] MEDS: NS(*) 0.9% 500 ML BAG 500 ML IV PRN (10:35)
[2018-03-19] MEDS: HEPARIN FLSH (PORT) 500 UN/5ML IVP PRN (10:35)
[2018-03-19] MEDS: LIDOCAINE/SOD BICARB 8.4% SYR ID PRN (10:35)
[2018-03-19] MEDS: DEXTROSE 5%(*) 100 ML BAG 100 ML IVPB PRN (11:21)
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
[2018-03-21 11:49] VITALS: BP 99/64
[2018-03-21] MEDS: HEPARIN FLSH (PORT) 500 UN/5ML IVP PRN (12:14)
--- NOTE | 2018-03-21 15:38 | Medical Nutrition Therapy ---
Nutrition Anthropometrics Height (Inches): 63.53 Height (Calculated Centimeters: 161.3662 Weight (Pounds): 135 Hx Weight Loss: Yes (pt states his weight 6 months ago was ~150lbs) Nutrition Monitoring & Eval Nutrition Follow-Up: Taking Snack Supplement, Fair Intake Nutrition Monitoring: Patient states he is doing at least one Boost per day, eating easy to prepare foods. He states his appetite, intake and swallowing have improved. His wt is fairly stable. I encouraged patient to increase Boost to 2/day if po intake decreases. I will provide additional recommendations if needed. RD Patient Assessment Time: 15 minutes (less than 15 minutes ) RD Assessment Type: RD Re-Assessment Patient Nutrition Acuity: 2-Moderate Nutritional Comment: Encouraged patient to call or let RN know if he would like to discuss any nutrition issues with me. VIOLETTE BROWN RDN, [place] Mar 21, 2018 15:38
[2018-03-26 10:11] VITALS: BP 104/88
[2018-03-26 10:36] LABS: PLATELET COUNT, AUTOMATED 239 K/uL (150-450)
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
[2018-04-02 11:01] VITALS: BP 113/72
[2018-04-02] MEDS: LIDOCAINE/SOD BICARB 8.4% SYR ID PRN (11:21)
[2018-04-02] MEDS: DEXAMETHASONE SOD PHOS 10MG/ML IVP PRN (12:03)
[2018-04-02] MEDS: PALONOSETRON 0.25 MG/5 ML VIAL IVP PRN (12:03)
[2018-04-02] MEDS: DEXTROSE 5%(*) 100 ML BAG 100 ML IVPB PRN (12:34)
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
[2018-04-04 11:28] VITALS: BP 108/76
[2018-04-04] MEDS: HEPARIN FLSH (PORT) 500 UN/5ML IVP PRN (11:45)
[2018-04-09 10:47] LABS: PLATELET COUNT, AUTOMATED 367 K/uL (150-450)
[2018-04-09 10:52] VITALS: BP 119/69
[2018-04-16 09:50] VITALS: BP 119/69
[2018-04-16] MEDS: LIDOCAINE/SOD BICARB 8.4% SYR ID PRN (10:02)
[2018-04-16] MEDS: NS(*) 0.9% 500 ML BAG 500 ML IV PRN (10:03)
[2018-04-16] MEDS: PALONOSETRON 0.25 MG/5 ML VIAL IVP PRN (10:34)
[2018-04-16] MEDS: DEXAMETHASONE SOD PHOS 10MG/ML IVP PRN (10:35)
[2018-04-16] MEDS: DEXTROSE 5%(*) 100 ML BAG 100 ML IVPB PRN (11:14)
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
[2018-04-18 11:34] VITALS: BP 105/62
[~2018-04-23] VITALS: Ht 161.4 cm; Wt 57.8 kg
[~2018-04-23 08:30] MED LIST changes: +ALTEPLASE RECOMB 2 MG VIAL IVP PRN; +D5W IV ONE; +D5W IVPB ONE; +DIPH-740 PO; +FLUOROURACIL 50 MG/ML SDV IV ONE; +FLUOROURACIL 50 MG/ML SDV IVP ONE; +FLUOROURACIL IV ONE; +INFLUENZA VIRUS VAC 0.5ML SYR IM ONLY ONE; +LEUCOVORIN CAL IV ONE; +NS 0.9% IV ONE; +NS(*) 0.9% 100 ML BAG 100 ML IVPB PRN; +OXALIPLATIN IVPB ONE; +PSEU120T69 PO; +WATER FOR INJ,STERILE 20 ML IVP PRN; +[UNRECOGNIZED DRUG - OTHER] IVPB ONE
[2018-04-23 08:39] VITALS: BP 108/53
[2018-04-23 09:00] LABS: PLATELET COUNT, AUTOMATED 245 K/uL (150-450)
[2018-04-23] MEDS ORDERED: METH4TAB66 PO (09:37)
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
== END 2018-04-24 ==
LOC: SPU 08:30
PROVIDERS: ATTEND Internal Medicine
DX: Z51.11 Encounter for antineoplastic chemotherapy (principal); C15.9 Malignant neoplasm of esophagus, unspecified; C79.51 Secondary malignant neoplasm of bone; C77.9 Secondary and unspecified malignant neoplasm of lymph node, unspecified; R53.83 Other fatigue; R13.10 Dysphagia, unspecified; Z87.891 Personal history of nicotine dependence; J44.9 Chronic obstructive pulmonary disease, unspecified; Z99.81 Dependence on supplemental oxygen; K21.9 Gastro-esophageal reflux disease without esophagitis; Z23 Encounter for immunization; R05 Cough; D70.1 Agranulocytosis secondary to cancer chemotherapy; R52 Pain, unspecified
CPT/HCPCS: 36415; 81001; 82378; 83615; 85025; 85027; 90471; 96360; 96368; 96375; 96411; 96413; 96415; 96416; G0463; J0640; J1100; J1642; J2469; J7040; J7060; J9190; J9263; Q2037; 82040; 82247; 82310; 82374; 82435; 82565; 82947; 84075; 84132; 84155; 84295; 84450; 84460; 84520; 90674; 99202; 99212

== ENCOUNTER 2018-06-19 23:51 | Emergency (ER) | payer MEDICARE ==
[2016-05-14 11:09] VITALS: Wt 61.2 kg
[~2018-06-19 23:51] MED LIST changes: -HYDR-653 PO; -HYDR473S9 PO; -METO25TA93 PO; -PANT40SU3 PO
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
[2018-06-20] MEDS ORDERED: ONDANSETRON 4 MG/2 ML VIAL IVP ONE (00:05)
[2018-06-20] MEDS ORDERED: NS(*) 0.9% 1000 ML BAG 1,000 ML IV ONE (00:05)
[2018-06-20 00:29] LABS: PLATELET COUNT, AUTOMATED 258 K/uL (150-450)
[2018-06-20] MEDS ORDERED: HYDROMORPHONE HCL 1 MG/ML SYRINGE IVP ONE (00:50)
--- NOTE | 2018-06-20 01:05 | RADIOLOGY IMAGING REPORT ---
[place] [facility] [place] NAME: Eduardo Hankins : 1950 MR: [id number] V: [id number] EXAM DATE: ORDERING PHYSICIAN: KARINA DONOHUE TECHNOLOGIST: Location: [facility] Patient: Eduardo Hankins : 1950 Visit/Account:[id number] Date of Sevice: 06/20/2018 Study: CT scan of the brain without intravenous contrast. Indication:Altered metal status Comparison study:None Technique: Multiple axial images were obtained through the brain without the use of intravenous contr ast. One of the following dose optimization techniques was utilized in the performance of this exam: Autom ated exposure control; adjustment of the mA and/or kV according to the patient's size; or use of an i terative reconstruction technique. Specific details can be referenced in the facility's radiology C T exam operational policy. The examination demonstrates no evidence of acute intracranial hemorrhage. There is no evidence of ex tra-axial collection or hydrocephalus. There is an area of CSF density within the left external capsule region. This is consistent with an o ld lacunar infarct. There is no evidence of disruption of the peripheral cantu-white junction. The bony structures are unremarkable. IMPRESSION:No acute intracranial abnormality identified.. There is no evidence of intracranial metast atic disease. Report Dictated By: Jarret Candelaria at 06/20/2018 12:55 AM Report E-Signed By: Jarret Candelaria at 06/20/2018 1:00 AM WSN:[id number]
[2018-06-20] MEDS ORDERED: HYDR-653 PO (01:40)
[2018-06-20 02:03] VITALS: BP 111/70
[2018-06-20] MEDS ORDERED: ALBUTEROL 2.5 MG/3 ML NEB NEB ONE (02:05)
== END 2018-06-20 02:40 | disposition home or self-care (01) ==
LOC: ER 23:58
DX: R41.82 Altered mental status, unspecified (principal); H57.11 Ocular pain, right eye; R41.0 Disorientation, unspecified; C15.9 Malignant neoplasm of esophagus, unspecified
CPT/HCPCS: 70450; 81001; 82150; 82550; 83690; 85025; 94640; 96361; 96374; 96375; 99284; J1170; J2405; J7030; J7613; 82040; 82247; 82310; 82374; 82435; 82565; 82947; 84075; 84132; 84155; 84295; 84450; 84460; 84520

== ENCOUNTER → 2018-06-19 | Outpatient (CLI) | payer MEDICARE ==
[~2018-06-19] MED LIST changes: -ALTEPLASE RECOMB 2 MG VIAL IVP PRN; -D5W IV ONE; -D5W IVPB ONE; -FLUOROURACIL 50 MG/ML SDV IV ONE; -FLUOROURACIL 50 MG/ML SDV IVP ONE; -FLUOROURACIL IV ONE; +HYDR-653 PO; +HYDR473S9 PO; -INFLUENZA VIRUS VAC 0.5ML SYR IM ONLY ONE; -LEUCOVORIN CAL IV ONE; +METH4TAB66 PO; +METO25TA93 PO; -NS 0.9% IV ONE; -NS(*) 0.9% 100 ML BAG 100 ML IVPB PRN; +ONDA4TAB9 PO; -OXALIPLATIN IVPB ONE; +PANT40SU3 PO; +PROC10TA4 PO; -WATER FOR INJ,STERILE 20 ML IVP PRN; -[UNRECOGNIZED DRUG - OTHER] IVPB ONE
[2018-06-21 09:05] VITALS: BMI 19.3
== END ==
LOC: AMB 23:31
PROVIDERS: ATTEND Nurse Practitioner
DX: R53.1 Weakness (principal)
CPT/HCPCS: A0425; A0429

== ENCOUNTER 2018-06-20 09:00 | Inpatient (IN) | payer MEDICARE ==
[~2018-06-20] VITALS: Ht 172.7 cm; Wt 57.6 kg
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
[~2018-06-20 09:00] MED LIST changes: -HYDR473S9 PO; -METO25TA93 PO; -PANT40SU3 PO
[2018-06-20] MEDS ORDERED: NS(*) 0.9% 500 ML BAG 500 ML IV ONE (09:06)
[2018-06-20] MEDS ORDERED: LORazepam 2 MG/ML VIAL IVP ONE ×2 (09:35→09:45)
--- NOTE | 2018-06-20 09:52 | EKG ---
FACILITY: [facility] PATIENT NAME: MICHAEL OLGUIN : [id number] MR: [id number] V: [id number] EXAM DATE: ORDERING PHYSICIAN: FRANCY VELA TECHNOLOGIST: KENNEDY Test Reason : WEAKNESS Blood Pressure : / mmHG Vent. Rate : 068 BPM Atrial Rate : 068 BPM P-R Int : 172 ms QRS Dur : 062 ms QT Int : 396 ms P-R-T Axes : 070 052 067 degrees QTc Int : 421 ms Normal sinus rhythm Low voltage QRS Borderline ECG When compared with ECG of 07-JAN-2018 09:36, premature ventricular complexes are no longer present Vent. rate has decreased BY 66 BPM Borderline criteria for Inferior infarct are no longer present Confirmed by Je Monge ([id number]) on 06/20/2018 9:07:16 PM Referred By: MIRIAN Confirmed By:Je Gonsalez
[2018-06-20 09:55] LABS: PLATELET COUNT, AUTOMATED 273 K/uL (150-450)
[2018-06-20 10:02] LABS: INR 0.95
--- NOTE | 2018-06-20 10:29 | RADIOLOGY IMAGING REPORT ---
FACILITY: [facility] - [place] PATIENT NAME: Eduardo Hankins : 1950 MR: [id number] V: [id number] EXAM DATE: ORDERING PHYSICIAN: FRANCY VELA TECHNOLOGIST: Location: [facility] Patient: Eduardo Hankins : 1950 Visit/Account:[id number] Date of Sevice: 06/20/2018 EXAMINATION: MRI Brain without intravenous contrast HISTORY: Left-sided weakness. Confusion. COMPARISON: Noncontrast head CT dated 06/20/2018. TECHNIQUE: Multi-planar, multi-sequence brain MRI was performed without IV contrast administration. FINDINGS: Brain volume: Normal. Sagittal midline structures: Negative. Ventricles: Negative. Acute ischemic changes: None. Hemorrhage: None. Masses / edema: None. Chairez-white: Negative. White matter: A few T2/FLAIR hyperintensities in the deep white matter bilaterally. Vessels: Negative. Extra-axial: Negative. Calvarium / scalp: Negative. Skull base: Negative. Visualized sinuses / orbits: Mild mucosal thickening in the right ethmoid air cells. Visualized upper neck: Negative. IMPRESSION: 1. No acute intracranial abnormality. 2. Mild chronic white matter disease is nonspecific but most likely represents chronic small vessel i schemia. Report Dictated By: Alan Estrada MD at 06/20/2018 10:21 AM Report E-Signed By: Alan Estrada MD at 06/20/2018 10:25 AM WSN:[email or web address]
--- NOTE | 2018-06-20 10:53 | RADIOLOGY IMAGING REPORT ---
FACILITY: [facility] PATIENT NAME: Eduardo Hankins : 1950 MR: [id number] V: [id number] EXAM DATE: ORDERING PHYSICIAN: FRANCY VELA TECHNOLOGIST: Location: [facility] Patient: Eduardo Hankins : 1950 Visit/Account:[id number] Date of Sevice: 06/20/2018 Exam type: CHEST SINGLE AP History: Chest Pain Comparison: February 07, 2018. Findings: There is persistent chronic blunting of left costophrenic angle. Mild chronic peribronchial thickeni ng and mild chronic interstitial prominence is again noted bilaterally. No acute areas of pulmonary consolidation are seen. The cardiac silhouette is normal in size. The right IJ implanted port appea rs unchanged. IMPRESSION: 1. Chronic peribronchial thickening in chronic mild interstitial prominence of the lungs remains unch anged Report Dictated By: Jacinta Freed MD at 06/20/2018 10:48 AM Report E-Signed By: Jacinta Freed MD at 06/20/2018 10:49 AM WSN:[id number]
[2018-06-20 12:12] VITALS: BP 130/68
[2018-06-20] MEDS: NS(*) 0.9% 1000 ML BAG 1,000 ML IV PRN (14:43)
--- NOTE | 2018-06-20 14:52 | History & Physical ---
History of Present Illness Chief Complaint Altered Mental Status, Difficulty breathing History of Present Illness 68-year-old male with a history of metastatic esophageal cancer whose undergone extensive chemotherapy presented to the emergency department with complaints of altered mental status and difficulty breathing. He is currently on a drug holiday. Please see Dr. Arreaga's most recent note on 06/09/18. Patient has recurrence of disease and worsening presentation on CAT scan suggesting a notation. Patient is undergoing palliative therapy and just completed a 7 round course of chemotherapy. Patient was seen yesterday evening for not feeling well and some altered mental status. Patient had a workup including CT scan which was unremarkable. Was prescribed some hydrocodone for headache. Patient was subsequently discharged home with instructions to follow-up with his primary care provider and oncologist. EMS was called this morning apparently because the patient seemed to be having some difficulty breathing and was "lethargic" patient apparently was slumped over but according to EMS he was alert and responding to questions. He normally wears 4 L of nasal oxygen secondary to COPD. He was recommended for admission. History Problems: (1) Esophageal cancer, stage IV Status: Chronic (2) Hypertension Status: Chronic (3) GERD (gastroesophageal reflux disease) Status: Chronic (4) Hypercholesteremia Status: Chronic Home Meds Active Scripts Hydrocodone Bit/Acetaminophen (NORCO 5-325 TABLET) 1 Each Tablet, 1-2 EACH PO Q4-6H PRN for PAIN, #20 TAB Prov:KARINA DONOHUE DO 06/20/18 Ondansetron 4 Mg Odt (ONDANSETRON 4 MG ODT) 4 Mg Tab.rapdis, 4 MG PO Q6H PRN for nausea, #3 TAB 5 Refills Prov:CHARLIE ARREAGA MD 05/26/18 Prochlorperazine Maleate (Compazine) 10 Mg Tablet, 10 MG PO Q6H PRN for NAUSEA, #30 TAB 5 Refills Prov:CHARLIE ARREAGA MD 05/26/18 Methylprednisolone (METHYLPREDNISOLONE) 4 Mg Tab.ds.pk, 4 MG PO DIRECTED, #1 PACK 0 Refills Prov:CHARLIE ARREAGA MD 04/23/18 Hydrocodone Bit/Acetaminophen (HYDROCODON-ACETAMINOPHEN 5-325) 1 Each Tablet, 1- 2 EACH PO Q6H PRN for PAIN, #60 TAB Prov:CHARLIE ARREAGA MD 02/10/18 Omeprazole (OMEPRAZOLE) 20 Mg Tablet., 20 MG PO QDAY, #30 TAB Prov:CHARLES TEAGUE MD 05/17/16 Reported Medications Diphenhydramine Hcl (BENADRYL) 25 Mg Capsule, 25 MG PO Q6-8H, CAPSULE 03/12/18 Fluticasone/Vilanterol 100/25 Mcg/Inh (BREO ELLIPTA 100/25 MCG) 1 Each Aer.pow.ba, 1 INH INH BID, INH 02/05/18 Albuterol Sulfate (VENTOLIN HFA) 18 Gm Inh, 2 PUFF INH Q4-6H PRN for DYSPNEA, INH 02/05/18 Pravastatin Sodium (PRAVASTATIN SODIUM) 80 Mg Tablet, 1 TAB PO DAILY, #30 05/13/16 Metoprolol Succinate (METOPROLOL SUCCINATE) 50 Mg Tab.er.24h, 1 TAB PO DAILY, #30 05/13/16 Enalapril Maleate (ENALAPRIL MALEATE) 20 Mg Tablet, 1 TAB PO DAILY, #45 05/13/16 Allergies: Coded Allergies: morphine (Unverified Allergy, Mild, 07/20/16) Patient History: FH: diabetes mellitus BROTHER OR SISTER, Onset:Unknown MOTHER, Onset:Unknown FH: heart attack BROTHER OR SISTER, Onset:Unknown FH: hypertension MOTHER, Onset:Unknown Hx Smoking: Yes Smoking Status: Former Smoker Exposure to Second Hand Smoke?: Yes Caffeine Intake: Coffee Caffeine/Cups Per Day: 1 Hx Alcohol Use: No Hx Substance Use Disorder: No Social Drug Use: Former Social Drugs: Marijuana, LSD Review of Systems Other patient sleeping throughout exam Exam Vital Signs Vital Signs Date Time Temp Pulse Resp B/P (MAP) Pulse Ox O2 Delivery O2 Flow Rate FiO2 06/20/18 12:24 99 Nasal Cannula 2.0 06/20/18 12:12 99.4 88 16 130/68 (88) General Appearance: No Acute Distress, Afebrile Cardiovascular: Regular Rate and Rhythm Respiratory: No Respiratory Distress, Clear to Auscultation GI: Abd Soft and Non-Tender Extremities: Warm, Perfused; No Edema Psych: Other (pt sleeping throughout exam) Medical Decision Making Data Points Result Diagram: 06/20/18 0935 06/20/18 0935 EKG / Imaging EKG Interpretation EKG performed in ER reviewed Imaging Chest x-ray and MRI brain performed in ER reviewed. Assessment and Plan Problems: (1) Adult failure to thrive Status: Acute Assessment & Plan: His sister and brother were present, report they have found him multiple times on the floor or unresponsive. They would like help with a discharge plan. process planner has been consulted to help with disposition. (2) Esophageal cancer, stage IV Status: Chronic Assessment & Plan: He does have esophageal stent placed to help with swallo wing. Recent CT shows mets to bone and pulmonary. He has undergone 7 courses of chemotherapy. He is currently on a drug holiday. (3) Dehydration Status: Acute Assessment & Plan: His family reports he has not been eating or drinking. H aving nausea. Will give gentle fluids overnight. (4) Hypertension Status: Chronic Assessment & Plan: He is on chronic treatment with Metoprolol and enalapril. These have been restarted with hold parameters. (5) COPD (chronic obstructive pulmonary disease) Status: Chronic Assessment & Plan: He is on chronic treatment with albuterol and Breo inhalers. Continue. (6) GERD (gastroesophageal reflux disease) Status: Chronic Assessment & Plan: He is on chronic treatment with Omeprazole. He will be plac ed on Protonix throughout admission. Venous Thromboembolism Antithrombotics Is Pt On Any Antithrombotics?: Yes Exam Sepsis Risk: No Definite Risk Problem Qualifiers (1) Adult failure to thrive: Failure to thrive age range: in adult Qualified Codes: R62.7 - Adult failure to thrive (2) Hypertension: Hypertension type: essential hypertension Qualified Codes: I10 - Essential (primary) hypertension CARLOS BARBOZA Jun 20, 2018 14:52
--- NOTE | 2018-06-20 17:19 | NUR ---
Physical Therapy Impression Per nursing, PT eval more appropriate for tomorrow. Pt sleeping and difficult to waken currently. Physical Therapy Goals Patient's Goals
[2018-06-20] MEDS: FLUTICASONE/VILANTEROL 100 MCG/25 MCG INH INH SCH (18:00)
[2018-06-20] MEDS ORDERED: [UNRECOGNIZED DRUG - OTHER] INH SCH (21:00)
[2018-06-20] MEDS: APAP/HYDROCODONE 325/5 TAB PO PRN (22:15)
[2018-06-21] MEDS: NS(*) 0.9% 1000 ML BAG 1,000 ML IV PRN ×3 (00:36→21:35)
[2018-06-21 01:14] VITALS: BP 133/73
[2018-06-21] MEDS: ALBUTEROL 8 GM INHALER INH PRN ×3 (01:21→12:46)
[2018-06-21] MEDS: FLUTICASONE/VILANTEROL 100 MCG/25 MCG INH INH SCH ×2 (06:00→19:00)
[2018-06-21 06:03] LABS: PLATELET COUNT, AUTOMATED 168 K/uL (150-450)
[2018-06-21 07:13] VITALS: BP 95/54
[2018-06-21] MEDS: ALBUTEROL/IPRATROPIUM 3 ML NEB NEB PRN ×2 (08:49→22:52)
[2018-06-21] MEDS ORDERED: ENALAPRIL MALEATE 10 MG TAB PO SCH (09:00)
[2018-06-21] MEDS: METOPROLOL SUCC XL 50 MG TABCR 50 MG TAB.ER.24H PO SCH (09:00)
[2018-06-21] MEDS ORDERED: PRAVASTATIN SOD 20 MG TAB PO SCH (09:00)
[2018-06-21 09:05] VITALS: Ht 172.7 cm; Wt 57.6 kg
[2018-06-21] MEDS: PANTOPRAZOLE SOD 40 MG TABEC PO SCH (09:49)
[2018-06-21] MEDS: ENOXAPARIN 40 MG/0.4ML SYR SC SCH (09:50)
--- NOTE | 2018-06-21 11:35 | NUR ---
Physical Therapy Impression PT evaluation complete. SBA for supine to sit bed mobility. Pt with poor ability to sequence transfers, requiring multiple verbal cues and tactile cues for hand placement. Pt completed stand pivot transfer to chair with RW and Lamont for walker negotiation. Pt attempted to stand from chair 2 times with major LOB backwards. Pt was unsafe to attempt ambulation at this time d/t difficulty sequencing. Pt would benefit from further rehab prior to d/c depending on what he desires. Physical Therapy Goals 1: Pt to complete bed mobility with Ruben 2: Pt to complete transfers with SBA and least restrictive AD 3: Pt to ambulate 50' with SBA and least restrictive AD 4: Pt to asc/desc 4 stairs with railing and SBA Patient's Goals
[2018-06-21] MEDS: ACETAMINOPHEN 325 MG TAB PO PRN ×3 (12:14→12:54)
[2018-06-21] MEDS ORDERED: SALINE 0.65% NAS SPR 44 ML BTL ONE (12:57)
[2018-06-21 13:00] VITALS: BP 115/57
--- NOTE | 2018-06-21 15:07 | Hospitalist Progress Note ---
Subjective Progress Notes Subjective He is much more awake and alert. He is able to eat and drink a little, but "I don't have any appetite". He did re-affirm his wish to be DNR/DNI. He and his family are also considering transition into comfort care/end-of-life care. Physical Exam Vital Signs Date Time Temp Pulse Resp B/P (MAP) Pulse Ox O2 Delivery O2 Flow Rate FiO2 06/21/18 13:00 97.3 60 20 115/57 (76) 95 Nasal Cannula 1.5 Intake and Output 06/21/18 07:00 Intake Total 980 ml Balance 980 ml Intake Oral 480 ml IV Total 500 ml General Appearance: Alert, Awake Eyes: Other (strabismus) ENT: Oropharynx Clear Cardiovascular: Regular Rate and Rhythm Respiratory: Other (decreased breath sounds bilaterally) Chest: No Tenderness GI: Soft and Non-Tender Extremities: Warm, Perfused Integumentary: Generalized Fragile Skin Psych: Alert & Oriented X3 Result Diagram: 06/21/1845 06/21/1845 Assessment and Plan Problems: (1) Esophageal cancer, stage IV Status: Chronic Assessment & Plan: He did have esophageal stent placed to help with swallowing. Recent CT shows potential improvement in primary tumor, but advancing mets to bone and pulmonary. He has undergone chemotherapy with FOLFOX. He and his family have had discussions with oncology about possible biopsy and further chemotherapy. At this time, however, they are also entertaining the idea of transitioning out of aggressive therapy and looking more towards comfort measures. They seem to understand the situation and options fairly well. They will get together and discuss all of this. (2) Dehydration Status: Acute Assessment & Plan: He has not been eating or drinking very well. He was having significant nausea (now improved). Will continue gentle IV fluids. (3) Hypertension Status: Chronic Assessment & Plan: He is on chronic treatment with Metoprolol and enalapril. Will hold and monitor BPs. (4) COPD (chronic obstructive pulmonary disease) Status: Chronic Assessment & Plan: He is on chronic treatment with albuterol and Breo inhalers. (5) GERD (gastroesophageal reflux disease) Status: Chronic Assessment & Plan: He is on chronic treatment with Omeprazole. He will be placed on Protonix throughout admission. Exam Sepsis Risk: No Definite Risk Problem Qualifiers (1) Hypertension: Hypertension type: essential hypertension Qualified Codes: I10 - Essential (primary) hypertension KRISHAN TEAGUE MD Jun 21, 2018 15:07
[2018-06-21 19:30] VITALS: BP 124/67
[2018-06-22 00:30] VITALS: BP 121/81
[2018-06-22] MEDS: ACETAMINOPHEN 325 MG TAB PO PRN (00:32)
[2018-06-22] MEDS: FLUTICASONE/VILANTEROL 100 MCG/25 MCG INH INH SCH ×2 (05:54→18:00)
[2018-06-22 06:05] VITALS: BP 119/77
[2018-06-22 06:56] LABS: PLATELET COUNT, AUTOMATED 199 K/uL (150-450)
[2018-06-22 08:15] VITALS: BP 118/73
[2018-06-22] MEDS: METOPROLOL SUCC XL 50 MG TABCR 50 MG TAB.ER.24H PO SCH (11:01)
[2018-06-22] MEDS: PANTOPRAZOLE SOD 40 MG TABEC PO SCH (11:01)
[2018-06-22] MEDS: ENOXAPARIN 40 MG/0.4ML SYR SC SCH (11:01)
--- NOTE | 2018-06-22 11:35 | Medical Nutrition Therapy ---
Nutrition Anthropometrics Height (Inches): 68.00 Height (Calculated Centimeters: 172.528233 Weight (Pounds): 127 Weight (Calculated Kilograms): 57.606 Omar Nutrition Score: Probably Inadequate Omar Nutrition Risk Score: 15 Dietary Referral Nutrition Risk Factors: Unplanned Loss >10lbs, Diff. Swallowing Nutrition Risk Comment: Physical Findings Physical Appearance: Skin Appearance Skin Appearance: Edema Edema Location Modifier: Both Edema Location: Foot Type of Edema: Degree of Edema: Gastrointestinal Symptoms GI Symtoms: Tube Present: Bowel Sounds: Recent Bowel Pattern: Stool Characteristics: Nutritional Diagnosis Nutritional Risk Acuity 1: Fail to Thrive Nutritional Risk Acuity 2: Head/Neck/GI Cancer Nutritional Risk Acuity 3: %IBW 81-89% Past Medical History: COPD, CAD, dysphagia, HTN, GERD, hypercholesterolemia, esophageal cancer stage 4 Nutritional Acuity: 1-High Nutrition Diagnosis: Inadequate Food Intake Nutrition Etiology: Loss of Appetite Nutrition Problem/Etiology/Sym: Inadequate food intake as related to loss of appetite as evidenced by pt report recent wt loss and refusal of meals. Energy Requirement: 1733 (m-st jeor X 1.1 (TEF) X 1.2 (activity facto)) Adjusted Energy Requirement Re: 2233 (+500 kcal/day-increased needs due to wt loss and medical condition) Protein Requirement: 85.5 (1.5 g protein/kg) Fluid Requirement: 1425 (25mLkg) Diet Type: Diet as Tolerated BAUDILIO/REG Nutrition Intervention: Cont diet as ordered, Encourage intake Additional Diet Restrictions: OFFER NUTRTION OR PROTEIN SUPPLEMENTS Nutrition Monitoring & Eval Nutrition Goals: Eat 50-100% Meal Nutritional Goals Comment: Progress from refusal of meals to intake of at least 50% Nutrition Follow-Up: Poor Intake RD Patient Assessment Time: [address] Assessment Type: RD Screen Patient Nutrition Acuity: 2-Moderate Follow Up Date: Jun 24, 2018 Nutritional Comment: Pt admitted with altered mental status and difficulty breathing. Hx of esophageal cancer stage 4, HTN, GERD, hypercholesterolemia. Pt on BAUDILIO but refused last meal. Notes state weight loss. BMI of 19 is WNL but low. Cl of 111, creatinine of 0.50 and BUN of 8 are all low. Albumin of 2.4 and total protein of 5.4 are decreased. RBC of 3.6, Hgb of 10.2 and Hct of 31.5 are all decreased. Monitor for improvement in intakes. -AKG 2/3: Pt continues on BAUDILIO with refusal of most meals. Pt has non-pitting edema in both feet. BUN of 4 and creatinine of 0.40 are decreased. Total protein of 5.5 and albumin of 2.5 are decreased, will offer nutritional supplement. Ca of 8.3 is decreased. RBC of 3.80, hgb of 10.7, and hct of 33.1 are all decreased. Pt taking enoxaparin. -Monitor for improvement in intakes. -MELANIE CEVALLOS Jun 22, 2018 11:34
--- NOTE | 2018-06-22 14:32 | Hospitalist Progress Note ---
Subjective Progress Notes Subjective 68M admitted for weakness, lethargy. IMproved with IV hydration now at baseline. Patient Complains of: Neurological: No: Confusion Gastrointestinal: No Nausea, No Vomiting Physical Exam Vital Signs Date Time Temp Pulse Resp B/P (MAP) Pulse Ox O2 Delivery O2 Flow Rate FiO2 06/22/18 08:18 96 Nasal Cannula 1.0 06/22/18 08:15 68 118/73 (88) 06/22/18 06:05 97.9 18 Intake and Output0 06/22/18 07:00 Intake Total 2340 ml Output Total 1250 ml Balance 1090 ml Intake Oral 1040 ml IV Total 1300 ml Output Urine Total 1250 ml # Voids 2 General Appearance: Alert, Awake, No Acute Distress, Afebrile Neuro: No Gross deficits Eyes: Other (R cataract) ENT: Normal Cardiovascular: Normal Rhythm & Peripheral Pulses Respiratory: No Respiratory Distress GI: Soft and Non-Tender Extremities: Soft and Non Tender, Warm, Pulses, Perfused Integumentary: Skin Intact without Lesion / Mass Result Diagram: 06/22/1864606/22/18646 Assessment and Plan Problems: (1) Esophageal cancer, stage IV Status: Chronic Assessment & Plan: He did have esophageal stent placed to help with swallowing. Recent CT shows potential improvement in primary tumor, but advancing mets to bone and pulmonary. He has undergone chemotherapy with FOLFOX. He and his family have had discussions with oncology about possible biopsy and further chemotherapy. At this time, however, they are also entertaining the idea of transitioning out of aggressive therapy and looking more towards comfort measures. They seem to understand the situation and options fairly well. They will get together and discuss all of this, medically stable for d/c when he has safe plan in place. (2) Dehydration Status: Acute Assessment & Plan: He has not been eating or drinking very well. He was having significant nausea (now improved). Will continue gentle IV fluids. (3) Hypertension Status: Chronic Assessment & Plan: He is on chronic treatment with Metoprolol and enalapril. Will hold and monitor BPs. (4) COPD (chronic obstructive pulmonary disease) Status: Chronic Assessment & Plan: He is on chronic treatment with albuterol and Breo inhalers. (5) GERD (gastroesophageal reflux disease) Status: Chronic Assessment & Plan: He is on chronic treatment with Omeprazole. He will be placed on Protonix throughout admission. Exam Sepsis Risk: No Definite Risk Problem Qualifiers (1) Hypertension: Hypertension type: essential hypertension Qualified Codes: I10 - Essential (primary) hypertension CRYSTAL JENKINS DO Jun 22, 2018 14:32
[2018-06-22 14:55] VITALS: BP 126/70
[2018-06-22] MEDS: APAP/HYDROCODONE 325/5 TAB PO PRN ×2 (15:43→22:39)
[2018-06-22 19:30] VITALS: BP 120/64
[2018-06-22] MEDS: ALBUTEROL/IPRATROPIUM 3 ML NEB NEB PRN (20:12)
[2018-06-22 22:40] VITALS: BP 118/65
[2018-06-23 04:00] VITALS: BP 129/70
[2018-06-23] MEDS: APAP/HYDROCODONE 325/5 TAB PO PRN ×3 (04:10→20:04)
[2018-06-23] MEDS: FLUTICASONE/VILANTEROL 100 MCG/25 MCG INH INH SCH ×2 (06:00→17:10)
[2018-06-23] MEDS: ALBUTEROL 8 GM INHALER INH PRN ×3 (08:38→20:04)
[2018-06-23] MEDS: ENOXAPARIN 40 MG/0.4ML SYR SC SCH (08:39)
[2018-06-23] MEDS: PANTOPRAZOLE SOD 40 MG TABEC PO SCH (08:39)
[2018-06-23 08:50] VITALS: BP 137/91
[2018-06-23] MEDS ORDERED: INFLUENZA VIRUS VAC 0.5ML SYR IM ONLY ONE (09:00)
[2018-06-23] MEDS: METOPROLOL SUCC XL 50 MG TABCR 50 MG TAB.ER.24H PO SCH (09:38)
[2018-06-23] MEDS: ALBUTEROL/IPRATROPIUM 3 ML NEB NEB PRN ×2 (11:04→17:10)
--- NOTE | 2018-06-23 11:54 | NUR ---
Physical Therapy Impression Pt is highly anxious about ambulating without use of his inhaler. Pt is unable to have inhaler at this time per nursing due to time frame ordered. Pt's SpO2 with rest and activity are in the high 90's. He requires a significant amount of VC's to perform pursed lip breathing to calm and slow breathing. Pt's sister arrived during bout of 200' ambulation, able to receive education on cues to improve breathing technique at home. Pt's sister is highly attentive and has been working diligently on setting up a safe place for the pt to live. She also reports having picked up a walker for the pt to utilize upon D/C. Notified nursing and D/C planning of this. Pt is safe to D/C home with services when medically appropriate to do so. Physical Therapy Goals 1: Pt to complete bed mobility with Ruben 2: Pt to complete transfers with SBA and least restrictive AD 3: Pt to ambulate 50' with SBA and least restrictive AD 4: Pt to asc/desc 4 stairs with railing and SBA Patient's Goals
--- NOTE | 2018-06-23 12:09 | NUR ---
PHYSICAL THERAPY INFORMATION TRANSFER SHEET BED MOBILITY: Standby Assistance TRANSFERS: Modified I/ AE GAIT: 200 ' with O2 RW and Standby Assistance Weightbearing Status: STAIRS: with . EXERCISES: Verbalizes Needs: Yes Understands Directions Yes Cooperative: Yes Family Teaching: No Physical Therapy Comment:
[2018-06-23] MEDS: guaiFENesin 600 MG TABCR PO SCH ×2 (13:21→20:04)
[2018-06-23 13:23] VITALS: BP 122/71
--- NOTE | 2018-06-23 14:22 | NUR ---
Occupational Therapy Impression SBA ambulation in room with RW. SpO2 WNL on 2L. Independent LB dressing. Pt and daughter reporting having obtained appropriate AE. Energy conservation principles incorporated throughout tx. Pt safe to discharge home with services and assist from family when medically appropriate. Pt and daughter with no further questions/concerns for OT at this time. Occupational Therapy Goals Patient's Goal
--- NOTE | 2018-06-23 14:23 | NUR ---
OCCUPATIONAL THERAPY Dressing Assistance: SBA Dressing Aid Required: None Bathing Assistance: May benefit from addressing safety with tub transfers in new home environment Bathing Equipment: Shower chair Home Assessment: Not Completed Feeding Assistance: Independent Feeding Specialized Equipment: None Toilet Use: SBA Verbalizes Needs: Yes Understands Precautions: Yes Cooperative: Yes Family Teaching: Yes Occupational Therapy Comment:
--- NOTE | 2018-06-23 14:45 | Hospitalist Progress Note ---
Subjective Progress Notes Subjective He has complaints of cough and increased sputum production this morning. Patient Complains of: Cardiovascular: No: Chest Pain Respiratory: Cough, Congestion; No: Shortness of Breath Physical Exam Vital Signs Date Time Temp Pulse Resp B/P (MAP) Pulse Ox O2 Delivery O2 Flow Rate FiO2 06/23/18 13:23 98.3 81 20 122/71 (88) 98 Nasal Cannula 2.0 Intake and Output 06/23/18 07:00 Intake Total 1062 ml Balance 1062 ml Intake Oral 1062 ml # Voids 4 General Appearance: Alert, Awake, No Acute Distress, Afebrile Neuro: No Gross deficits Cardiovascular: Regular Rate and Rhythm Respiratory: No Respiratory Distress, Other (diminished lung sounds throughout) Extremities: Warm, Perfused; No Edema Psych: Alert & Oriented X3, Appropriate Mood & Affect Result Diagram: 06/22/1864606/22/18646 Assessment and Plan Problems: (1) Esophageal cancer, stage IV Status: Chronic Assessment & Plan: He did have esophageal stent placed to help with swallowing. Recent CT shows potential improvement in primary tumor, but advancing mets to bone and pulmonary. He has undergone chemotherapy with FOLFOX. He and his family have had discussions with oncology about possible biopsy and further chemotherapy. At this time, however, they are also entertaining the idea of transitioning out of aggressive therapy and looking more towards comfort measures. They seem to understand the situation and options fairly well. They will get together and discuss all of this, medically stable for d/c when he has safe plan in place. The patient will need require a hospital bed to help with discharge home. The patient requires the head of bed to be elevated for more than 30 degrees most of the time due to aspiration and COPD. He also requires frequent change in body position. (2) Dehydration Status: Acute Assessment & Plan: He has not been eating or drinking very well. He was having significant nausea (now improved). He was given gentle IV fluids. (3) Hypertension Status: Chronic Assessment & Plan: He is on chronic treatment with Metoprolol and enalapril. Will hold and monitor BPs. (4) COPD (chronic obstructive pulmonary disease) Status: Chronic Assessment & Plan: He is on chronic treatment with albuterol and Breo inhalers. (5) GERD (gastroesophageal reflux disease) Status: Chronic Assessment & Plan: He is on chronic treatment with Omeprazole. He will be placed on Protonix throughout admission. Exam Sepsis Risk: No Definite Risk Problem Qualifiers (1) Hypertension: Hypertension type: essential hypertension Qualified Codes: I10 - Essential (primary) hypertension CARLOS BARBOZA Jun 23, 2018 14:45
[2018-06-23] MEDS: GI COCKTAIL 60 ML BTL PO PRN (17:53)
[2018-06-23 20:20] VITALS: BP 133/84
[2018-06-24] VITALS: BP 109/65
[2018-06-24 05:02] VITALS: BP 134/85
[2018-06-24] MEDS: FLUTICASONE/VILANTEROL 100 MCG/25 MCG INH INH SCH ×2 (05:48→20:24)
[2018-06-24] MEDS: ALBUTEROL 8 GM INHALER INH PRN ×2 (07:23→17:24)
[2018-06-24] MEDS ORDERED: DIAZEPAM 5 MG TAB PO PRN (08:15)
[2018-06-24] MEDS: ALBUTEROL/IPRATROPIUM 3 ML NEB NEB PRN (08:45)
[2018-06-24 08:59] VITALS: BP 152/90
[2018-06-24] MEDS: METOPROLOL SUCC XL 50 MG TABCR 50 MG TAB.ER.24H PO SCH (09:04)
[2018-06-24] MEDS: PANTOPRAZOLE SOD 40 MG TABEC PO SCH (09:04)
[2018-06-24] MEDS: guaiFENesin SYR 200MG/10ML UDC PO SCH ×2 (09:05→20:21)
[2018-06-24] MEDS: ENOXAPARIN 40 MG/0.4ML SYR SC SCH (09:05)
[2018-06-24 09:14] LABS: PLATELET COUNT, AUTOMATED 249 K/uL (150-450)
--- NOTE | 2018-06-24 09:24 | RADIOLOGY IMAGING REPORT ---
FACILITY: [facility] PATIENT NAME: Eduardo Hankins : 1950 MR: [id number] V: [id number] EXAM DATE: ORDERING PHYSICIAN: CARLOS BARBOZA TECHNOLOGIST: Location: [facility] - [place] Patient: Eduardo Hankins : 1950 Visit/Account:[id number] Date of Sevice: 06/24/2018 CHEST PA LAT Additional pertinent History: Congestion chest pain COMPARISON STUDIES: Comparison is made to a previous study of 06/20/2018 FINDINGS: Support lines and catheters: Right chest [id number] catheter. Esophageal stent Lungs and Pleura: Focal area of atelectasis at the left base. Slight blunting of the costophrenic a ngles compatible probable small effusions. Heart and vasculature: Negative. Michelle and Mediastinum: Negative. Bones and Chest wall: Negative. Upper Abdomen: Negative. IMPRESSION: 1. Atelectasis left base. Blunting of both costophrenic angles compatible probable small effusions. Report Dictated By: Kunal Lewis MD at 06/24/2018 9:16 AM Report E-Signed By: Kunal Lewis MD at 06/24/2018 9:20 AM WSN:LOLY
[2018-06-24] MEDS ORDERED: NS(*) 0.9% 1000 ML BAG 1,000 ML IV ONE (10:45)
[2018-06-24] MEDS: PROMETHAZINE 25 MG/ML 1 ML AMP IVP PRN (11:22)
[2018-06-24 12:13] VITALS: BP 125/79
[2018-06-24] MEDS: HYDROCOD/ACETAMIN 2.5-108/5 ML 5 ML UDC PO PRN ×2 (12:15→20:21)
--- NOTE | 2018-06-24 12:48 | Hospitalist Progress Note ---
Subjective Progress Notes Subjective He has complaints of nausea this morning. States he has been choking on food and pills, having difficult time with eating and drinking. He also has his usual chest pain, which he contributes to the cancer. He takes Lortab at home for his chest pain, but has difficulty now swallowing the pills. Patient Complains of: Cardiovascular: No: Chest Pain Respiratory: Cough, Congestion, Shortness of Breath Gastrointestinal: Nausea Physical Exam Vital Signs Date Time Temp Pulse Resp B/P (MAP) Pulse Ox O2 Delivery O2 Flow Rate FiO2 06/24/18 12:13 98.7 85 18 125/79 (94) 98 Nasal Cannula 2.0 Intake and Output 06/24/18 00:00 Intake Total 756 ml Balance 756 ml Intake Oral 756 ml # Voids 4 General Appearance: Alert, Awake, No Acute Distress, Afebrile Cardiovascular: Regular Rate and Rhythm Respiratory: No Respiratory Distress, Other (diminished in the bases, bronchial sounds coarse) GI: Soft and Non-Tender Extremities: Warm, Perfused; No Edema Psych: Alert & Oriented X3, Appropriate Mood & Affect Result Diagram: 06/24/18 0906 06/24/18 09 Assessment and Plan Problems: (1) Esophageal cancer, stage IV Status: Chronic Assessment & Plan: He did have esophageal stent placed to help with swallowing. Recent CT shows potential improvement in primary tumor, but advancing mets to bone and pulmonary. He has undergone chemotherapy with FOLFOX. He and his family have had discussions with oncology about possible biopsy and further chemoth erapy. At this time, however, they are also entertaining the idea of transitioning out of aggressive therapy and looking more towards comfort measures. They seem to understand the situation and options fairly well. They will get together and discuss all of this, medically stable for d/c when he has safe plan in place. The patient will need require a hospital bed to help with discharge home. The patient requires the head of bed to be elevated for more than 30 degrees most of the time due to aspiration and COPD. He also requires frequent change in body position. He will receive IV hydration, antiemetics today. We will switch his Lortab pills to elixir. Chest x-ray shows atelectasis, so will continue with flutter therapy and guaifenesin syrup. (2) Dehydration Status: Acute Assessment & Plan: He has not been eating or drinking very well. He was having significant nausea upon admission. He was given gentle IV fluids upon admission. Will hydrate again today. (3) Hypertension Status: Chronic Assessment & Plan: He is on chronic treatment with Metoprolol and enalapril. Will hold enalapril and monitor BPs. (4) COPD (chronic obstructive pulmonary disease) Status: Chronic Assessment & Plan: He is on chronic treatment with albuterol and Breo inhalers. (5) GERD (gastroesophageal reflux disease) Status: Chronic Assessment & Plan: He is on chronic treatment with Omeprazole. He will be placed on Protonix throughout admission. Exam Sepsis Risk: No Definite Risk Problem Qualifiers (1) Hypertension: Hypertension type: essential hypertension Qualified Codes: I10 - Essential (primary) hypertension CARLOS BARBOZAP Jun 24, 2018 12:48
--- NOTE | 2018-06-24 14:47 | Medical Nutrition Therapy ---
Nutrition Anthropometrics Height (Inches): 68.00 Height (Calculated Centimeters: 172.500227 Weight (Pounds): 127 Weight (Calculated Kilograms): 57.606 Omar Nutrition Score: Probably Inadequate Omar Nutrition Risk Score: 16 Dietary Referral Nutrition Risk Factors: Unplanned Loss >10lbs, Diff. Swallowing Nutrition Risk Comment: Nutritional Diagnosis Nutritional Risk Acuity 1: Fail to Thrive Nutritional Risk Acuity 2: Head/Neck/GI Cancer Nutritional Risk Acuity 3: %IBW 81-89% Past Medical History: COPD, CAD, dysphagia, HTN, GERD, hypercholesterolemia, esophageal cancer stage 4 Nutritional Acuity: 1-High Nutrition Diagnosis: Inadequate Food Intake Nutrition Etiology: Loss of Appetite Nutrition Problem/Etiology/Sym: Inadequate food intake as related to loss of appetite as evidenced by pt report recent wt loss and refusal of meals. Energy Requirement: 1733 (m-st jeor X 1.1 (TEF) X 1.2 (activity facto)) Adjusted Energy Requirement Re: 2233 (+500 kcal/day-increased needs due to wt loss and medical condition) Protein Requirement: 85.5 (1.5 g protein/kg) Fluid Requirement: 1425 (25mLkg) Diet Type: Diet as Tolerated BAUDILIO/REG Nutrition Intervention: Cont diet as ordered, Encourage intake Food Likes: chips, ice cream, pudding, milkshakes Additional Diet Restrictions: OFFER NUTRTION OR PROTEIN SUPPLEMENTS Diet Comment To RSA: PT NEEDS EASY TO SWALLOW LIQUIDS/SOFT FOODS BUT LIKES CHIPS ALSO Nutrition Monitoring & Eval Nutrition Follow-Up: Poor Intake RD Patient Assessment Time: [address] Assessment Type: RD Re-Assessment Patient Nutrition Acuity: 2-Moderate Follow Up Date: Jun 27, 2018 Nutritional Comment: Pt admitted with altered mental status and difficulty breathing. Hx of esophageal cancer stage 4, HTN, GERD, hypercholesterolemia. Pt on BAUDILIO but refused last meal. Notes state weight loss. BMI of 19 is WNL but low. Cl of 111, creatinine of 0.50 and BUN of 8 are all low. Albumin of 2.4 and total protein of 5.4 are decreased. RBC of 3.6, Hgb of 10.2 and Hct of 31.5 are all decreased. Monitor for improvement in intakes. -AKG 2/3: Pt continues on BAUDILIO with refusal of most meals. Pt has non-pitting edema in both feet. BUN of 4 and creatinine of 0.40 are decreased. Total protein of 5.5 and albumin of 2.5 are decreased, will offer nutritional supplement. Ca of 8.3 is decreased. RBC of 3.80, hgb of 10.7, and hct of 33.1 are all decreased. Pt taking enoxaparin. -Monitor for improvement in intakes. -AKG 06/24 Pt cont BAUDILIO, intake average 15%. Pt would like mostly liquids but chips also feel good. Informed pt we would like to provide whatever food he is able to eat. Will cont to offer nutr supplments and encourage intake as pt can tolerate. ALEM PEDROZA Jun 24, 2018 14:47
[2018-06-24] MEDS: GI COCKTAIL 60 ML BTL PO PRN (19:14)
[2018-06-24 19:52] VITALS: BP 115/72
[2018-06-24 23:56] VITALS: BP 130/76
[2018-06-25] MEDS: PROMETHAZINE 25 MG/ML 1 ML AMP IVP PRN (01:21)
[2018-06-25] MEDS: ALBUTEROL 8 GM INHALER INH PRN ×3 (01:26→12:28)
[2018-06-25] MEDS: FLUTICASONE/VILANTEROL 100 MCG/25 MCG INH INH SCH (05:34)
[2018-06-25 07:43] VITALS: BP 133/95
[2018-06-25] MEDS: HYDROCOD/ACETAMIN 2.5-108/5 ML 5 ML UDC PO PRN (07:46)
[2018-06-25] MEDS: guaiFENesin SYR 200MG/10ML UDC PO SCH (08:58)
[2018-06-25] MEDS: METOPROLOL SUCC XL 50 MG TABCR 50 MG TAB.ER.24H PO SCH (08:58)
[2018-06-25] MEDS: PANTOPRAZOLE SOD 40 MG TABEC PO SCH (08:58)
[2018-06-25] MEDS: ENOXAPARIN 40 MG/0.4ML SYR SC SCH (08:58)
[2018-06-25] MEDS ORDERED: HYDR473S9 PO (10:50)
[2018-06-25] MEDS ORDERED: METO25TA93 PO (10:50)
[2018-06-25] MEDS ORDERED: PANT40SU3 PO (10:50)
--- NOTE | 2018-06-25 11:03 | Hospitalist Depart ---
Discharge Summary Reason for Hosp/Final Diag: (1) Esophageal cancer, stage IV Status: Chronic Hospital Course & Plan: He did have esophageal stent placed to help with swallowing. Recent CT shows potential improvement in primary tumor, but advancing mets to bone and pulmonary. He has undergone chemotherapy with FOLFOX. He and his family have had discussions with oncology about possible biopsy and further chemotherapy. At this time, however, they are also entertaining the idea of transitioning out of aggressive therapy and looking more towards comfort measures. They seem to understand the situation and options fairly well. The patient and family have decided he would like to get bone biopsy to see if he is a candidate for more treatment. He is scheduled next week. The patient will need require a hospital bed to help with discharge home. The patient requires the head of bed to be elevated for more than 30 degrees most of the time due to aspiration and COPD. He also requires frequent change in body position. The family has requested his tablets be evaluated by pharmacy to see if they could crush his tablets if he is unable to swallow well. I have made changes to his medications based on his swallowing status. See below the changes. (2) Dehydration Status: Acute Hospital Course & Plan: He has not been eating or drinking very well. He was having significant nausea upon admission. He was given gentle IV fluids upon admission. Encouraged to increase intake. (3) Hypertension Status: Chronic Hospital Course & Plan: He is on chronic treatment with Metoprolol Succinate and enalapril. He will be switched from Metoprolol Succinate to Metoprolol Tartrate which can be crushed if needed. He can continue enalapril. (4) COPD (chronic obstructive pulmonary disease) Status: Chronic Hospital Course & Plan: He is on chronic treatment with albuterol and Breo inhalers. (5) GERD (gastroesophageal reflux disease) Status: Chronic Hospital Course & Plan: He is on chronic treatment with Omeprazole, which cannot be crushed. He was placed on Protonix throughout admission. He will be switched to Protonix sprinkles, which can be mixed with apple sauce. Departure Latest Vital Signs Vital Signs 06/25/18 06/25/18 07:43 09:15 Temp 98.1 Pulse 91 Resp 20 B/P (MAP) 133/95 (108) Pulse Ox 90 O2 Delivery Nasal Cannula O2 Flow Rate 1.5 Weight (Pounds): 127 Result Diagram: 06/24/1890506/24/18899 Condition: Improved Discharge: Home, Home Health PT/OT Follow Up For: PT For Strengthening, OT For ADL's, PT Evaluation and Treat, OT Evaluation and Treat Home Health RN Follow Up For: Medication Management, Nursing Assessment Home Health [employer] SUPERVISOR Follow Up For: ADL Assistance Discharge Code Status: DNR, DNI Discharge Instructions Home Meds Active Scripts Metoprolol Tartrate (METOPROLOL TARTRATE) 25 Mg Tablet, 1 TAB PO BID, #60 TAB Prov:CARLOS BARBOZA [facility] 06/25/18 Pantoprazole Sodium (PROTONIX) 40 Mg Granpkt.dr, 40 MG PO QDAY, #30 PACK Prov:JABARICARLOS Yessica [facility] 06/25/18 Hydrocodone/Acetaminophen 10/300 MG/15 ML (Lortab 10 mg-300 mg/15 ml Elxr) 473 Ml Solution, 15 ML PO Q6H PRN for PAIN, #420 ML Prov:BARBOZACARLOS [facility] 06/25/18 Ondansetron 4 Mg Odt (ONDANSETRON 4 MG ODT) 4 Mg Tab.rapdis, 4 MG PO Q6H PRN for nausea, #3 TAB 5 Refills Prov:CHARLIE ARREAGA MD 05/26/18 Prochlorperazine Maleate (Compazine) 10 Mg Tablet, 10 MG PO Q6H PRN for NAUSEA, #30 TAB 5 Refills Prov:CHARLIE ARREAGA MD 05/26/18 Reported Medications Diphenhydramine Hcl (BENADRYL) 25 Mg Capsule, 25 MG PO Q6-8H, CAPSULE 03/12/18 Fluticasone/Vilanterol 100/25 Mcg/Inh (BREO ELLIPTA 100/25 MCG) 1 Each Aer.pow.ba, 1 INH INH BID, INH 02/05/18 Albuterol Sulfate (VENTOLIN HFA) 18 Gm Inh, 2 PUFF INH Q4-6H PRN for DYSPNEA, INH 02/05/18 Pravastatin Sodium (PRAVASTATIN SODIUM) 80 Mg Tablet, 1 TAB PO DAILY, #30 05/13/16 Enalapril Maleate (ENALAPRIL MALEATE) 20 Mg Tablet, 1.5 TAB PO DAILY, #45 05/13/16 Discontinued Reported Medications Metoprolol Succinate (METOPROLOL SUCCINATE) 50 Mg Tab.er.24h, 1 TAB PO DAILY, #30 05/13/16 Discontinued Scripts Methylprednisolone (METHYLPREDNISOLONE) 4 Mg Tab.ds.pk, 4 MG PO DIRECTED, #1 PACK 0 Refills Prov:CHARLIE ARREAGA MD 04/23/18 Hydrocodone Bit/Acetaminophen (HYDROCODON-ACETAMINOPHEN 5-325) 1 Each Tablet, 1- 2 EACH PO Q6H PRN for PAIN, #60 TAB Prov:CHARLIE ARREAGA MD 02/10/18 Omeprazole (OMEPRAZOLE) 20 Mg Tablet.dr, 20 MG PO QDAY, #30 TAB Prov:CHARLES TEAGUE MD 05/17/16 Hydrocodone Bit/Acetaminophen (NORCO 5-325 TABLET) 1 Each Tablet, 1-2 EACH PO Q4-6H PRN for PAIN, #20 TAB Prov:KARINA DONOHUE DO 06/20/18 Diet: Regular Activity: As Tolerated Special Instructions: Follow up with Cancer Center after Bone Biopsy next week. Continue to increase hydration and food intake. Your medications have been adjusted so you can crush or swallow them easier. Copies to: ENZO SAMSON DO; TIFFANIE FAMP-C ; Venous Thromboembolism Antithrombotics Is Pt On Any Antithrombotics?: Yes Problem Qualifiers (1) Hypertension: Hypertension type: essential hypertension Qualified Codes: I10 - Essential (primary) hypertension CARLOS BARBOZA Jun 25, 2018 11:03
[2018-06-25] MEDS ORDERED: HEPARIN FLSH (PORT) 500 UN/5ML ONE (12:11)
== END 2018-06-25 13:30 | disposition home or self-care (01) | DRG 375 ==
LOC: ER 09:13 → MED 11:38
PROVIDERS: ADMIT Internal Medicine; ATTEND Internal Medicine
DX: C15.9 Malignant neoplasm of esophagus, unspecified (principal); C79.51 Secondary malignant neoplasm of bone; C78.00 Secondary malignant neoplasm of unspecified lung; Z68.1 Body mass index [BMI] 19.9 or less, adult; E86.0 Dehydration; R62.7 Adult failure to thrive; I10 Essential (primary) hypertension; J44.9 Chronic obstructive pulmonary disease, unspecified; Z66 Do not resuscitate; T17.920A Food in respiratory tract, part unspecified causing asphyxiation, initial encounter; K21.9 Gastro-esophageal reflux disease without esophagitis; Z88.5 Allergy status to narcotic agent; Z92.21 Personal history of antineoplastic chemotherapy; Z87.891 Personal history of nicotine dependence; Y92.230 Patient room in hospital as the place of occurrence of the external cause
CPT/HCPCS: 36415; 70551; 71045; 71046; 82040; 82247; 82310; 82374; 82435; 82565; 82947; 83605; 83735; 83880; 84075; 84132; 84155; 84295; 84450; 84460; 84484; 84520; 85025; 85610; 85730; 87040; 87502; 93005; 94640; 94667; 94668; 96361; 96374; 97161; 97165; 99284; J1642; J1650; J2060; J2550; J3535; J7030; J7040

== ENCOUNTER → 2018-06-20 | Outpatient (CLI) | payer MEDICARE ==
[~2018-06-20] MED LIST changes: +HYDR-653 PO; +HYDR473S9 PO; +METO25TA93 PO; +PANT40SU3 PO
[2018-06-21 09:05] VITALS: BMI 19.3
== END ==
LOC: AMB 08:42
PROVIDERS: ATTEND Nurse Practitioner
DX: H57.11 Ocular pain, right eye (principal); R53.83 Other fatigue; R06.00 Dyspnea, unspecified; R53.1 Weakness; C15.9 Malignant neoplasm of esophagus, unspecified
CPT/HCPCS: A0425; A0429

== ENCOUNTER 2018-07-04 09:00 | Outpatient (RCR) | payer MEDICARE ==
[2018-04-30] MEDS: DEXAMETHASONE SOD(*) 10MG/ML 10 MG in NS(*) 0.9% 50 ML BAG 50 ML IVP PRN (11:09)
[2018-04-30] MEDS: HEPARIN FLSH (PORT) 500 UN/5ML IVP PRN (11:10)
[2018-04-30] MEDS: LIDOCAINE/SOD BICARB 8.4% SYR ID PRN (11:10)
[2018-04-30] MEDS: NS(*) 0.9% 500 ML BAG 500 ML IV PRN (11:10)
[2018-04-30] MEDS: PALONOSETRON 0.25 MG/5 ML VIAL IVP PRN (11:10)
[2018-04-30] MEDS: DEXTROSE 5%(*) 100 ML BAG 100 ML IVPB PRN (11:42)
[2018-04-30] MEDS: LEUCOVORIN CAL IV PRN (11:44)
[2018-04-30] MEDS: D5W IV PRN (11:44)
[2018-04-30] MEDS: [UNRECOGNIZED DRUG - OTHER] IVPB PRN (11:45)
[2018-04-30] MEDS: OXALIPLATIN IVPB PRN (11:45)
[2018-04-30] MEDS: FLUOROURACIL 50 MG/ML SDV IV PRN (13:55)
[2018-04-30] MEDS: FLUOROURACIL IV PRN (14:01)
[2018-04-30] MEDS: NS 0.9% IV PRN (14:01)
[2018-04-30 14:24] VITALS: BP 120/64
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
[2018-05-02 12:06] VITALS: BP 104/73
[2018-05-02] MEDS: HEPARIN FLSH (PORT) 500 UN/5ML IVP PRN (12:12)
[2018-05-07 11:04] VITALS: BP 113/78
[2018-05-07 11:22] LABS: PLATELET COUNT, AUTOMATED 302 K/uL (150-450)
[2018-05-14 09:56] VITALS: BP 112/65
[2018-05-14] MEDS: LIDOCAINE/SOD BICARB 8.4% SYR ID PRN (10:45)
[2018-05-14] MEDS: NS(*) 0.9% 500 ML BAG 500 ML IV PRN (10:46)
[2018-05-14] MEDS: PALONOSETRON 0.25 MG/5 ML VIAL IVP PRN (10:46)
[2018-05-14] MEDS: DEXAMETHASONE SOD(*) 10MG/ML 10 MG in NS(*) 0.9% 50 ML BAG 50 ML IVP PRN (10:46)
[2018-05-14] MEDS: DEXTROSE 5%(*) 100 ML BAG 100 ML IVPB PRN (11:19)
[2018-05-14] MEDS: D5W IV PRN (11:26)
[2018-05-14] MEDS: LEUCOVORIN CAL IV PRN (11:26)
[2018-05-14] MEDS: [UNRECOGNIZED DRUG - OTHER] IVPB PRN (11:28)
[2018-05-14] MEDS: OXALIPLATIN IVPB PRN (11:28)
[2018-05-14] MEDS: FLUOROURACIL 50 MG/ML SDV IV PRN (13:36)
[2018-05-14] MEDS: FLUOROURACIL IV PRN (13:37)
[2018-05-14] MEDS: NS 0.9% IV PRN (13:37)
[2018-05-14 13:52] VITALS: BP 140/90
[2018-05-16] MEDS: HEPARIN FLSH (PORT) 500 UN/5ML IVP PRN (11:36)
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
[2018-05-21 12:07] LABS: PLATELET COUNT, AUTOMATED 183 K/uL (150-450)
[2018-05-21 12:18] VITALS: BP 112/71
[2018-05-22] MEDS: LIDOCAINE/SOD BICARB 8.4% SYR ID PRN (09:17)
[2018-05-22] MEDS: HEPARIN FLSH (PORT) 500 UN/5ML IVP PRN (09:18)
[2018-05-22 09:19] VITALS: BP 113/83
--- NOTE | 2018-05-22 14:08 | RADIOLOGY IMAGING REPORT ---
FACILITY: [facility] PATIENT NAME: Eduardo Hankins : 1950 MR: [id number] V: [id number] EXAM DATE: ORDERING PHYSICIAN: CHARLIE ARREAGA TECHNOLOGIST: Location: [facility] Patient: Eduardo Hankins : 1950 Visit/Account:[id number] Date of Sevice: 05/22/2018 CHEST/AB/PELV W/WO CONTRAST HISTORY: Obstructing esophageal mass ADDITIONAL HISTORY: None. TECHNIQUE: Pre and post administration of IV contrast axial images acquired through the chest abdome n and pelvis during the portal venous phase. Coronal and sagittal reformatting was also performed.Do se Lowering Technique One of the following dose optimization techniques was utilized in the performance of this exam: Autom ated exposure control; adjustment of the mA and/or kV according to the patient's size; or use of an i terative reconstruction technique. Specific details can be referenced in the facility's radiology C T exam operational policy. CONTRAST: 75 mL Isovue-370 COMPARISON: PET/CT January 24, 2018 FINDINGS: CHEST: Lungs/Pleura: Severe emphysematous changes again seen throughout the lungs. There is a 7 mm noncalc ified nodule along the posterior lateral right upper lobe best appreciated on image 39 of series 3 no t present on the prior study increasing septal thickening is seen along the anterior aspect of the in ferior right lower lobe. An irregular spiculation surrounding linear stranding is now noted in the a nterior right middle lobe measuring approximately 8 mm in diameter noncalcified pulmonary nodule ante rolateral right middle lobe slightly increased in size now measuring 6 mm as opposed to 4 mm peribron chial thickening bilaterally appears relatively unchanged. There is chronic atelectasis in the poste rior inferior lingula. No evidence of pleural effusions. There are secretions in the left main bronchus and proximal left lower lobe bronchus Mediastinum/lymph nodes: There is been a marked decrease in the mediastinal adenopathy when compared the prior study. Multiple small lymph nodes remain in the prevascular space, AP window and pretrach eal region although no pathologically enlarged lymph nodes are seen in these locations at this time. There is a right hilar lymph node measuring 1.5 x 1 cm previously 1.3 x 0.7 cm There is a 1.7 x 1 cm subcarinal lymph node previously 1 x 0.7 cm in addition to several smaller subc arinal lymph nodes. There is a 1.2 x 1 cm left infrahilar lymph node that appears relatively unchang ed Again noted is an esophageal stent extending from just below the level the katrina to the GE junction. There is an air-fluid level in the midportion of the stent. There is extensive soft tissue thicken ing just inferior to the stent at the GE junction appears to be increased when compared to the prior study. There appears to be soft tissue density material extending into the inferior opening of the s tent Heart/vessels: There is an implanted right IJ port with the distal tip at the aortocaval junction. There are extensive coronary artery calcifications present Bones/soft tissues: There increasing sclerotic foci seen in the right humeral head with several new sclerotic foci seen within the sternum. The lytic lesion in the inferior aspect of the sternum has i ncreased in size now measuring 1.8 x one cm previously 1.3 x 1 cm. there increasing sclerotic metast ases in the ribs bilaterally. There increasing sclerotic metastases also seen throughout the lumbar spine the sacrum, right iliac bone and both hips. There are also increasing lytic lesions identified in both iliac bones and lateral aspect of the inferior pubic ramus on the right ABDOMEN AND PELVIS: Hepatobiliary: Cholelithiasis although no evidence of bony ductal dilatation Spleen: Negative. Pancreas: Negative. Adrenals: Previous small right adrenal mass not well seen. Nodular thickening the left adrenal glan d appears relatively unchanged Kidneys ureters and bladder : Subcentimeter cortical hypodensi ies in the left kidney may represent c ysts although are too small to characterize. The bladder is mostly decompressed therefore not ideall y evaluated Genitalia: Negative.GI: See above discussion concerning the esophagus. There is colonic diverticulosis although no CT evidence of acute diverticulitis. Vessels/spaces/nodes: There are extensive vascular calcifications in the abdominal aorta and branch vessels . There is mild dilatation of the infrarenal abdominal aorta measuring approximately 2.1 cm in AP dimension relatively unchanged. 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 Please see above discussion concerning numerous osseous metastases Additional findings: None pertinent. IMPRESSION: Increasing pulmonary metastases as detailed above There are secretions in the left main bronchus and proximal left lower lobe bronchus There is been a mixed response to the mediastinal adenopathy with marked decrease in the prevascular space, AP window and pretracheal lymph nodes. There has been an increase in the right hilar and subc arinal adenopathy and stable left infrahilar lymph node Esophageal stent again noted with extensive soft tissue thickening just inferior to the stent at the GE junction which is increased when compared the prior study apparently related to patient's known ma lignancy. There appears to be soft tissue density material entering into the inferior opening of the stent There increasing osseous metastases throughout the visualized bones Cholelithiasis Previously noted small right adrenal mass not well seen. The nodular thickening left adrenal gland a ppears unchanged Extensive atherosclerotic disease throughout the chest abdomen and pelvis Large umbilical hernia containing fat Report Dictated By: Jacinta Freed MD at 05/22/2018 1:10 PM Report E-Signed By: Jacinta Freed MD at 05/22/2018 2:03 PM WSN:[id number]
[2018-05-26 11:20] VITALS: BP 95/67
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
--- NOTE | 2018-06-05 15:43 | NUR ---
TANNA rec'd information from [facility] that they do not provide financial assistance "after the fact" meaning, they would provide the assistance up front but not after the procedure has been performed. Unfortunately the patient is still in need of assistance. TANNA placed a referral to the [facility] to see if they could provide any assistance.
[2018-06-09 09:49] VITALS: BP 137/84
[2018-06-09 10:10] LABS: PLATELET COUNT, AUTOMATED 171 K/uL (150-450)
[2018-06-09] MEDS: HEPARIN FLSH (PORT) 500 UN/5ML IVP PRN (10:17)
[2018-06-09] MEDS: LIDOCAINE/SOD BICARB 8.4% SYR ID PRN (10:17)
[2018-06-21 09:05] VITALS: Ht 165.1 cm; Wt 60.7 kg
--- NOTE | 2018-07-01 14:33 | NUR ---
SW visited with pt's sister today in the office when she came in to ask about resources for rent assistance. SW and sister completed the [employer] for living application and submitted it with the contact information of his weatherization and housing inspector (Regan rubin).
[2018-07-02 08:25] VITALS: BP 149/93
[2018-07-02] MEDS: LIDOCAINE/SOD BICARB 8.4% SYR ID PRN (08:38)
[2018-07-02 09:07] LABS: PLATELET COUNT, AUTOMATED 204 K/uL (150-450)
[2018-07-02] MEDS: HEPARIN FLSH (PORT) 500 UN/5ML IVP PRN (09:30)
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
[2018-07-03 09:32] VITALS: BP 137/76
[2018-07-03] MEDS: LIDOCAINE/SOD BICARB 8.4% SYR ID PRN (09:43)
[2018-07-03] MEDS: HEPARIN FLSH (PORT) 500 UN/5ML IVP PRN (09:43)
--- NOTE | 2018-07-03 10:05 | NUR ---
SW and student visited with pt about options for applying for [place] medicaid ltc waiver. Pt reported assets greater than what would qualify him for waiver, so he declined to submit the application. Pt was agreeable to having additional help from the [facility] for cleaning and transportation. SW will submit a referral to [facility].
[2018-07-03 11:20] VITALS: BP 147/67
[~2018-07-04] VITALS: Ht 165.1 cm; Wt 60.7 kg
[~2018-07-04 09:00] MED LIST changes: +ALTEPLASE RECOMB 2 MG VIAL IVP PRN; +DEXAMETHASONE IVP PRN; +FAMOTIDINE 20 MG/50 ML PREMIX IVPB ONE; +HYDR473S9 PO; +IOPAMIDOL 76% 75 ML INFUS BTL 75 ML ONE; +KCL/NS* 20 MEQ/1000 ML PREMIX 1,000 ML IV ONE; +METO25TA93 PO; +NS 0.9% IVP PRN; +NS(*) 0.9% 100 ML BAG 100 ML IVPB PRN; +NS(*) 0.9% 1000 ML BAG 1,000 ML IV ONE; +PANT40SU3 PO; +WATER FOR INJ,STERILE 20 ML IVP PRN
--- NOTE | 2018-07-04 10:02 | NUR ---
SW assisted pt with completion of his [facility] Advanced Directive/Power of [employer] Records Clerk document. It was finalized with a notary and placed on file with [facility] Medical Records and CC.
[2018-07-04] MEDS: LIDOCAINE/SOD BICARB 8.4% SYR ID PRN (10:09)
[2018-07-04] MEDS: HEPARIN FLSH (PORT) 500 UN/5ML IVP PRN (10:10)
[2018-07-04] MEDS ORDERED: FAMOTIDINE 10 MG/ML SDV IV ONE (10:15)
[2018-07-04] MEDS ORDERED: NS(*) 0.9% 1000 ML BAG 1,000 ML IV PRN (10:15)
[2018-07-04 11:33] VITALS: BP 159/84
== END 2018-07-07 14:15 | disposition home or self-care (01) ==
LOC: SPU 09:00
PROVIDERS: ATTEND Internal Medicine
DX: Z51.11 Encounter for antineoplastic chemotherapy (principal); C15.9 Malignant neoplasm of esophagus, unspecified; C79.51 Secondary malignant neoplasm of bone; C77.9 Secondary and unspecified malignant neoplasm of lymph node, unspecified; R53.83 Other fatigue; R13.10 Dysphagia, unspecified; Z87.891 Personal history of nicotine dependence; J44.9 Chronic obstructive pulmonary disease, unspecified; Z99.81 Dependence on supplemental oxygen; K21.9 Gastro-esophageal reflux disease without esophagitis; Z23 Encounter for immunization; K80.20 Calculus of gallbladder without cholecystitis without obstruction; K46.9 Unspecified abdominal hernia without obstruction or gangrene; I25.10 Atherosclerotic heart disease of native coronary artery without angina pectoris; R07.9 Chest pain, unspecified; K59.00 Constipation, unspecified; Z92.21 Personal history of antineoplastic chemotherapy; R53.1 Weakness; R11.0 Nausea
CPT/HCPCS: 36415; 36591; 71270; 74178; 82378; 85025; 85027; 86301; 96360; 96361; 96365; 96366; 96367; 96368; 96375; 96413; 96415; 96416; 96523; G0463; J0640; J1100; J1642; J2469; J3480; J3490; J7030; J7040; J7050; J7060; J9190; J9263; Q9967; 82040; 82247; 82310; 82374; 82435; 82565; 82947; 84075; 84132; 84155; 84295; 84450; 84460; 84520; 99212

== ENCOUNTER 2018-07-05 09:22 | Inpatient (IN) | payer MEDICARE ==
[2018-06-21 09:05] VITALS: Ht 170.2 cm; Wt 58.1 kg
[~2018-07-05] VITALS: Ht 170.2 cm; Wt 58.1 kg
[2018-07-05] MEDS ORDERED: ALBUTEROL/IPRATROPIUM 3 ML NEB NEB ONE (09:35)
[2018-07-05] MEDS ORDERED: NS(*) 0.9% 1000 ML BAG 1,000 ML IV ONE (09:35)
[2018-07-05] MEDS ORDERED: ALBUTEROL/IPRATROPIUM 3 ML NEB ONE (09:35)
[2018-07-05] MEDS ORDERED: methylPREDNIS SUCC 125 MG/2ML IVP ONE (09:35)
--- NOTE | 2018-07-05 09:43 | ER Report ---
History and Physical Time Seen By MD: 09:25 HPI/ROS CHIEF COMPLAINT: dyspnea, altered mental status HISTORY OF PRESENT ILLNESS: EMS was called out by patient's sister who is reportedly the POA, to the [facility], where he was sitting on the floor with his nasal cannula off. Per sister, last night patient was moving around normally, however when she went to visit him this morning he was less responsive. EMS noted patient with decreased responsiveness and difficulty breathing. When EMS arrived on scene, patient is not verbally responsive, has initial sats of 67%. Patient does not tolerate nonrebreather and pulses soft, however they placed nasal cannula with 6 L of O2 and patient improves to sats of 90-95%. Initial blood glucose is 82% prior to arrival. Patient has port and reported history of esophageal cancer as well as COPD. Upon arrival, patient initially is not in respiratory distress, however he quickly develops difficulty breathing as we are changing over the oxygen. Patient is nonverbal. He does not follow commands, however he does have purposeful movements. Unable to obtain any review of systems. REVIEW OF SYSTEMS: Unable to obtain Remainder of the 14 system rev: No (pt is nonresponsive) Allergies: Coded Allergies: morphine (Unverified Allergy, Mild, 07/20/16) Home Meds Active Scripts Metoprolol Tartrate (METOPROLOL TARTRATE) 25 Mg Tablet, 1 TAB PO BID, #60 TAB Prov:CARLOS BARBOZA [employer] 06/25/18 Pantoprazole Sodium (PROTONIX) 40 Mg Granpkt.dr, 40 MG PO QDAY, #30 PACK Prov:CARLOS BARBOZA [employer]ES [employer] 06/25/18 Hydrocodone/Acetaminophen 10/300 MG/15 ML (Lortab 10 mg-300 mg/15 ml Elxr) 473 Ml Solution, 15 ML PO Q6H PRN for PAIN, #420 ML Prov:CARLOS BARBOZA [employer]ES DRIVER 06/25/18 Ondansetron 4 Mg Odt (ONDANSETRON 4 MG ODT) 4 Mg Tab.rapdis, 4 MG PO Q6H PRN for nausea, #3 TAB 5 Refills Prov:CHARLIE ARREAGA MD 05/26/18 Prochlorperazine Maleate (Compazine) 10 Mg Tablet, 10 MG PO Q6H PRN for NAUSEA, #30 TAB 5 Refills Prov:CHARLIE ARREAGA MD 05/26/18 Reported Medications Diphenhydramine Hcl (BENADRYL) 25 Mg Capsule, 25 MG PO Q6-8H, CAPSULE 03/12/18 Fluticasone/Vilanterol 100/25 Mcg/Inh (BREO ELLIPTA 100/25 MCG) 1 Each Aer.pow.ba, 1 INH INH BID, INH 02/05/18 Albuterol Sulfate (VENTOLIN HFA) 18 Gm Inh, 2 PUFF INH Q4-6H PRN for DYSPNEA, INH 02/05/18 Pravastatin Sodium (PRAVASTATIN SODIUM) 80 Mg Tablet, 1 TAB PO DAILY, #30 05/13/16 Enalapril Maleate (ENALAPRIL MALEATE) 20 Mg Tablet, 1.5 TAB PO DAILY, #45 05/13/16 Hx Smoking: Yes Smoking Status: Former Smoker Exposure to Second Hand Smoke?: Yes Hx Substance Use Disorder: No Hx Alcohol Use: No Constitutional Vital Sign - Last 24 Hours 07/05/18 07/05/18 07/05/18 07/05/18 09:22 09:27 09:30 09:30 Temp 97.6 Pulse ??? 85 Resp 8 B/P (MAP) 136/91 (106) 145/89 Pulse Ox 98 O2 Delivery Nasal Cannula O2 Flow Rate 5.0 07/05/18 07/05/18 07/05/18 07/05/18 09:30 09:37 09:39 09:39 Pulse 107 102 Resp 26 20 B/P (MAP) 135/84 (101) Pulse Ox 97 97 O2 Delivery Nasal Cannula O2 Flow Rate 4.0 07/05/18 07/05/18 07/05/18 07/05/18 09:45 09:52 10:00 10:03 Pulse ??? Resp 15 B/P (MAP) 145/89 (107) 55/42 (46) 133/87 (102) Pulse Ox 96 07/05/18 07/05/18 07/05/18 07/05/18 10:07 10:15 10:22 10:30 Pulse 109 110 Resp 20 34 B/P (MAP) 134/84 (101) 126/74 (91) Pulse Ox 97 99 07/05/18 07/05/18 07/05/18 07/05/18 10:37 10:45 10:52 11:00 Pulse 111 111 Resp 35 32 B/P (MAP) 118/73 (88) 129/74 (92) Pulse Ox 98 100 07/05/18 11:07 Pulse 108 Resp 26 Pulse Ox 98 Physical Exam General Appearance: The patient has eyes open, does not follow commands, but does pull away from efforts to examine Eyes: Right cataract, left pupil reactive ENT, Mouth: mucous membranes dry Respiratory: significant retractions, minimal air movement Cardiovascular: borderline tachycardia Gastrointestinal: abdomen is soft without masses Neurological: no apparent focal deficits, purposeful movements but doesnt follow commands Skin: no lacerations/abrasions/contusions c/w fall. Dry with cool extremities Musculoskeletal: Extremities are nontender, nonswollen and have full range of motion. pulses 2+ bilat LE DIFFERENTIAL DIAGNOSIS: After history and physical exam differential diagnosis was considered for shortness of breath including but not limited to pulmonary infectious process, COPD, asthma, pulmonary embolus and congestive heart failure.altered mental status including but not limited to hypoglycemia, infectious process, electrolyte abnormality, head injury and intoxicants. Medical Decision Making Data Points Result Diagram: 07/05/1833 07/05/1833 Laboratory Hematology Test 07/05/18 09:33 07/05/18 09:44 Red Blood Count 4.56 M/uL (4.00-5.60) Mean Corpuscular Volume 88.9 fL (80.0-96.0) Mean Corpuscular Hemoglobin 27.5 pg (26.0-33.0) Mean Corpuscular Hemoglobin Concent 30.9 g/dL (32.0-36.0) Red Cell Distribution Width 18.2 % (11.5-14.5) Mean Platelet Volume 7.7 fL (7.2-11.1) Neutrophils (%) (Auto) 92.0 % (39.4-72.5) Lymphocytes (%) (Auto) 2.1 % (17.6-49.6) Monocytes (%) (Auto) 5.5 % (4.1-12.4) Eosinophils (%) (Auto) 0.1 % (0.4-6.7) Basophils (%) (Auto) 0.3 % (0.3-1.4) Nucleated RBC Relative Count (auto) 0.0 /100WBC Neutrophils # (Auto) 22.1 K/uL (2.0-7.4) Lymphocytes # (Auto) 0.5 K/uL (1.3-3.6) Monocytes # (Auto) 1.3 K/uL (0.3-1.0) Eosinophils # (Auto) 0.0 K/uL (0.0-0.5) Basophils # (Auto) 0.1 K/uL (0.0-0.1) Nucleated RBC Absolute Count (auto) 0.01 K/uL Peripheral Blood Smear Yes Y/N Prothrombin Time 13.1 seconds (12.0-14.4) Prothromb Time International Ratio 0.99 Activated Partial Thromboplast Time 26 seconds (23-35) Sodium Level 143 mmol/L (137-145) Potassium Level 3.9 mmol/L (3.5-5.0) Chloride Level 100 mmol/L (98-107) Carbon Dioxide Level 28 mmol/L (22-30) Blood Urea Nitrogen 5 mg/dl (9-21) Creatinine 0.60 mg/dl (0.66-1.25) Glomerular Filtration Rate Calc > 60.0 Random Glucose 124 mg/dl (75-110) Lactate 4.1 mmol/L (0.7-2.1) Calcium Level 8.7 mg/dl (8.4-10.2) Total Bilirubin 1.2 mg/dl (0.2-1.3) Aspartate Amino Transf (AST/SGOT) 40 U/L (0-35) Alanine Aminotransferase (ALT/SGPT) 19 U/L (0-56) Alkaline Phosphatase 112 U/L (0-126) Troponin I 0.062 ng/ml Total Protein 6.9 g/dl (6.3-8.2) Albumin 3.4 g/dl (3.5-5.0) Lipase 16 U/L (23-300) Influenza Virus Type A (PCR) Negative (NEGATIVE) Influenza Virus Type B (PCR) Negative (NEGATIVE) Chemistry Test 07/05/18 09:33 07/05/18 09:44 White Blood Count 24.0 k/uL (4.5-11.0) Red Blood Count 4.56 M/uL (4.00-5.60) Hemoglobin 12.5 g/dL (14.0-18.0) Hematocrit 40.5 % (42.0-52.0) Mean Corpuscular Volume 88.9 fL (80.0-96.0) Mean Corpuscular Hemoglobin 27.5 pg (26.0-33.0) Mean Corpuscular Hemoglobin Concent 30.9 g/dL (32.0-36.0) Red Cell Distribution Width 18.2 % (11.5-14.5) Platelet Count 251 K/uL (150-450) Mean Platelet Volume 7.7 fL (7.2-11.1) Neutrophils (%) (Auto) 92.0 % (39.4-72.5) Lymphocytes (%) (Auto) 2.1 % (17.6-49.6) Monocytes (%) (Auto) 5.5 % (4.1-12.4) Eosinophils (%) (Auto) 0.1 % (0.4-6.7) Basophils (%) (Auto) 0.3 % (0.3-1.4) Nucleated RBC Relative Count (auto) 0.0 /100WBC Neutrophils # (Auto) 22.1 K/uL (2.0-7.4) Lymphocytes # (Auto) 0.5 K/uL (1.3-3.6) Monocytes # (Auto) 1.3 K/uL (0.3-1.0) Eosinophils # (Auto) 0.0 K/uL (0.0-0.5) Basophils # (Auto) 0.1 K/uL (0.0-0.1) Nucleated RBC Absolute Count (auto) 0.01 K/uL Peripheral Blood Smear Yes Y/N Prothrombin Time 13.1 seconds (12.0-14.4) Prothromb Time International Ratio 0.99 Activated Partial Thromboplast Time 26 seconds (23-35) Glomerular Filtration Rate Calc > 60.0 Lactate 4.1 mmol/L (0.7-2.1) Calcium Level 8.7 mg/dl (8.4-10.2) Total Bilirubin 1.2 mg/dl (0.2-1.3) Aspartate Amino Transf (AST/SGOT) 40 U/L (0-35) Alanine Aminotransferase (ALT/SGPT) 19 U/L (0-56) Alkaline Phosphatase 112 U/L (0-126) Troponin I 0.062 ng/ml Total Protein 6.9 g/dl (6.3-8.2) Albumin 3.4 g/dl (3.5-5.0) Lipase 16 U/L (23-300) Influenza Virus Type A (PCR) Negative (NEGATIVE) Influenza Virus Type B (PCR) Negative (NEGATIVE) Coagulation Test 07/05/18 09:33 Prothrombin Time 13.1 seconds Prothromb Time International Ratio 0.99 Activated Partial Thromboplast Time 26 seconds EKG/Imaging EKG Interpretation 12 lead EKG: Rhythm: sinus tachycardia Bock: normal QRS: normal ST segments: normal nonspecific with significant artifact Monitor Interpretation: Sinus Tachycardia ED Course/Re-evaluation ED Course 68-year-old male presents in severe respiratory distress. He improved quickly with nasal cannula as well as nebulizer treatments. He improves from being completely nonresponsive to answering simple questions and following simple commands. Of note, his POLST documents DNR with selective treatment. Patient remains altered in ED though we are able to get sats to 98% on nasal cannula. He is findings concerning for aspiration pneumonia. We will treat with cefepime given potential for hospital-acquired. Head CT is unremarkable in the emergency department. His sister who is POA is here and is likely moving toward hospice care after admission for initial stabilization. Patient will require one-on-one inpatient management. Decision to Disposition Date: Jul 05, 2018 Decision to Disposition Time: 12:44 Depart Departure Latest Vital Signs Vital Signs Date Time Temp Pulse Resp B/P (MAP) Pulse Ox O2 Delivery O2 Flow Rate FiO2 07/05/18 11:07 108 26 98 07/05/18 11:00 129/74 (92) 07/05/18 09:39 Nasal Cannula 4.0 07/05/18 09:30 97.6 Impression: Primary Impression: Aspiration pneumonia Additional Impressions: Hypoxia Altered mental status Condition: Critical Disposition: Admitted from ER Referrals: ENZO SAMSON DO (PCP) Problem Qualifiers Primary Impression: Aspiration pneumonia Aspiration pneumonia type: unspecified Laterality: right Lung location: unspecified part of lung Qualified Codes: J69.0 - Pneumonitis due to inhalation of food and vomit Additional Impressions: Altered mental status Altered mental status type: unspecified Qualified Codes: R41.82 - Altered mental status, unspecified FRANCY HILL MD Jul 05, 2018 09:43
[2018-07-05 09:49] LABS: PLATELET COUNT, AUTOMATED 251 K/uL (150-450)
[2018-07-05 09:52] LABS: INR 0.99
[2018-07-05] MEDS ORDERED: LORazepam 2 MG/ML VIAL IVP ONE (10:00)
--- NOTE | 2018-07-05 10:25 | RADIOLOGY IMAGING REPORT ---
FACILITY: [facility] [place] PATIENT NAME: Eduardo Hankins : 1950 MR: [id number] V: [id number] EXAM DATE: ORDERING PHYSICIAN: FRANCY HILL TECHNOLOGIST: Location: [facility] Patient: Eduardo Hankins : 1950 Visit/Account:[id number] Date of Sevice: 07/05/2018 Technique: CHEST SINGLE AP HISTORY: dyspnea Comparison studies: Chest radiograph 06/24/2018 FINDINGS: Prominence of the central pulmonary vasculature is noted. Hazy and linear right midlung air space opacities are noted. There are scattered interstitial lung markings as well as regions of scarr ing. Biapical pleural thickening is noted. Chest port is unchanged. Cardiac silhouette is also unchan ged. IMPRESSION: 1. Chronic lung findings as above. There are progressive right midlung airspace opacities concerning for interstitial pneumonia. Report Dictated By: Jose G Ballesteros DO at 07/05/2018 10:19 AM Report E-Signed By: Jose G Ballesteros DO at 07/05/2018 10:21 AM WSN:[id number]
[2018-07-05] MEDS ORDERED: ASPIRIN 81 MG CHEW PO ONE (10:35)
[2018-07-05] MEDS ORDERED: ASPIRIN 300 MG SUPP PR ONE (10:55)
[2018-07-05] MEDS ORDERED: KETAMINE HCL-NS 50 MG/5 ML SYR IVP ONE (11:15)
[2018-07-05] MEDS ORDERED: CEFEPIME HCL 2 GM VIAL IVP ONE (11:20)
--- NOTE | 2018-07-05 11:54 | EKG ---
FACILITY: [facility] [place] PATIENT NAME: MICHAEL OLGUIN : [id number] MR: [id number] V: [id number] EXAM DATE: ORDERING PHYSICIAN: FRANCY HILL TECHNOLOGIST: NONA Test Reason : FOUND DOWN Blood Pressure : / mmHG Vent. Rate : 106 BPM Atrial Rate : 106 BPM P-R Int : 134 ms QRS Dur : 054 ms QT Int : 362 ms P-R-T Axes : 066 072 062 degrees QTc Int : 480 ms Sinus tachycardia Low voltage QRS Nonspecific ST and T wave abnormality Abnormal ECG When compared with ECG of 20-JUN-2018 09:12, Vent. rate has increased BY 38 BPM Nonspecific T wave abnormality now evident in Inferior leads Nonspecific T wave abnormality now evident in Lateral leads QT has lengthened Confirmed by JOSE STRICKLAND ([id number]) on 07/05/2018 7:07:48 PM Referred By: LIZ Confirmed By:JOSE STRICKLAND
--- NOTE | 2018-07-05 12:25 | RADIOLOGY IMAGING REPORT ---
FACILITY: [facility] PATIENT NAME: Eduardo Hankins : 1950 MR: [id number] V: [id number] EXAM DATE: ORDERING PHYSICIAN: FRANCY HILL TECHNOLOGIST: Location: [facility] Patient: Eduardo Hankins : 1950 Visit/Account:[id number] Date of Sevice: 07/05/2018 CT Head without contrast Indication: Altered mental status. Comparison: 06/20/2018. Technique: Axial CT images were obtained through the brain from the skull base to the vertex without administration of IV contrast. Reformatted coronal and sagittal images were also obtained. One of the following dose optimization techniques was utilized in the performance of this exam: autom ated exposure control; adjustment of the mA and/or kV according to the patient's size; or use of an i terative reconstruction technique. Specific details can be referenced in the facility's radiology CT exam operational policy. Findings: No evidence of mass, mass effect, or midline shift. No acute intracranial hemorrhage or acute territorial infarction. No extra-axial fluid collection or hydrocephalus. Mild age-related cerebral atrophy. Mild periventric ular white matter ischemic changes consistent small vessel disease. Chairez/white matter differentiation appears normal. Bony structures show no fractures or lesions. Mild bilateral internal carotid artery calcifications. The visualized paranasal sinuses and mastoid air cells are clear. IMPRESSION: 1. Continued mild senescent changes without acute abnormality. Report Dictated By: Rip Rouse at 07/05/2018 12:17 PM Report E-Signed By: Rip Rouse at 07/05/2018 12:21 PM WSN:[id number]
[2018-07-05 13:46] VITALS: BP 126/115
[2018-07-05] MEDS ORDERED: ACETAMINOPHEN 325 MG TAB PO PRN (14:50)
[2018-07-05] MEDS ORDERED: PROMETHAZINE 25 MG/ML 1 ML AMP IVP PRN (14:50)
--- NOTE | 2018-07-05 14:59 | History & Physical ---
History of Present Illness Chief Complaint Altered mental status History of Present Illness This patient was brought to the emergency room after being found more confused by family members. He does have metastatic esophageal cancer. His family has noted that he has becoming progressively weaker and more confused over the past several weeks. He has also been in significantly more pain and discomfort. He has been receiving care through the cancer center, but the family is now requesting that he be made comfortable and go into hospice care. They are no longer able to safely care for him at home. History Problems: (1) Esophageal cancer, stage IV Status: Chronic (2) Altered mental status Status: Chronic (3) Adult failure to thrive Status: Chronic (4) Hypertension Status: Chronic (5) GERD (gastroesophageal reflux disease) Status: Chronic (6) COPD (chronic obstructive pulmonary disease) Status: Chronic Home Meds Active Scripts Metoprolol Tartrate (METOPROLOL TARTRATE) 25 Mg Tablet, 1 TAB PO BID, #60 TAB Prov:BARBOZACARLOS [facility] 06/25/18 Pantoprazole Sodium (PROTONIX) 40 Mg Granpkt.dr, 40 MG PO QDAY, #30 PACK Prov:JABARICARLOS [facility] 06/25/18 Hydrocodone/Acetaminophen 10/300 MG/15 ML (Lortab 10 mg-300 mg/15 ml Elxr) 473 Ml Solution, 15 ML PO Q6H PRN for PAIN, #420 ML Prov:BARBOZACARLOS [facility] 06/25/18 Ondansetron 4 Mg Odt (ONDANSETRON 4 MG ODT) 4 Mg Tab.rapdis, 4 MG PO Q6H PRN for nausea, #3 TAB 5 Refills Prov:CHARLIE ARREAGA MD 05/26/18 Prochlorperazine Maleate (Compazine) 10 Mg Tablet, 10 MG PO Q6H PRN for NAUSEA, #30 TAB 5 Refills Prov:CHARLIE ARREAGA MD 05/26/18 Reported Medications Diphenhydramine Hcl (BENADRYL) 25 Mg Capsule, 25 MG PO Q6-8H, CAPSULE 03/12/18 Fluticasone/Vilanterol 100/25 Mcg/Inh (BREO ELLIPTA 100/25 MCG) 1 Each Aer.p ow.ba, 1 INH INH BID, INH 02/05/18 Albuterol Sulfate (VENTOLIN HFA) 18 Gm Inh, 2 PUFF INH Q4-6H PRN for DYSPNEA, INH 02/05/18 Pravastatin Sodium (PRAVASTATIN SODIUM) 80 Mg Tablet, 1 TAB PO DAILY, #30 05/13/16 Enalapril Maleate (ENALAPRIL MALEATE) 20 Mg Tablet, 1.5 TAB PO DAILY, #45 05/13/16 Allergies: Coded Allergies: morphine (Unverified Allergy, Mild, 07/20/16) Patient History: FH: diabetes mellitus BROTHER OR SISTER, Onset:Unknown MOTHER, Onset:Unknown FH: heart attack BROTHER OR SISTER, Onset:Unknown FH: hypertension MOTHER, Onset:Unknown Hx Smoking: Yes Smoking Status: Former Smoker Exposure to Second Hand Smoke?: Yes Caffeine Intake: Coffee Caffeine/Cups Per Day: 1 Hx Alcohol Use: No Hx Substance Use Disorder: No Social Drug Use: Former Social Drugs: Marijuana, LSD Review of Systems All Systems Reviewed/Normal: Yes, Except as Noted Neurological: Weakness Respiratory: Shortness of Breath Exam Vital Signs Vital Signs Date Time Temp Pulse Resp B/P (MAP) Pulse Ox O2 Delivery O2 Flow Rate FiO2 07/05/18 13:46 98.1 95 22 126/115 (119) 100 Nasal Cannula 6.0 Neuro: No Gross deficits Eyes: PERRLA Cardiovascular: Regular Rate and Rhythm Respiratory: Clear to Auscultation Extremities: No Edema Integumentary: No Cyanosis Medical Decision Making Data Points Result Diagram: 07/05/1893207/05/18932 Assessment and Plan Problems: (1) Aspiration pneumonia Status: Acute Assessment & Plan: His chest x-ray does show new interstitial changes in the right lower lung. He received a dose of antibiotics in the emergency room, but the family has now requested comfort measures only. (2) End of life care Assessment & Plan: At the family's request we have placed him on comfort measures. Dilaudid and lorazepam have been ordered. The family is interested in the hospice house, but are also open to other arrangements, but they do not believe that they would be able to care for him at home. (3) Esophageal cancer, stage IV Status: Chronic Copies to: ENZO SAMSON DO ; Venous Thromboembolism Antithrombotics Is Pt On Any Antithrombotics?: No Exam Sepsis Risk: Severe Sepsis Risk Problem Qualifiers (1) Aspiration pneumonia: Aspiration pneumonia type: unspecified Laterality: right Lung location: unspecified part of lung Qualified Codes: J69.0 - Pneumonitis due to inhalation of food and vomit JOSE STRICKLAND DO Jul 05, 2018 14:59
[2018-07-05] MEDS: LORazepam 2 MG/ML VIAL IVP PRN (15:42)
[2018-07-05] MEDS: HYDROmorphone HCL 2 MG/ML SDV IVP PRN (17:30)
[2018-07-05] MEDS ORDERED: ACETAMINOPHEN(*)1000 MG/100 ML 100 ML IVPB PRN (18:00)
[2018-07-06] MEDS: LORazepam 2 MG/ML VIAL IVP PRN (00:13)
[2018-07-06] MEDS: HYDROmorphone HCL 2 MG/ML SDV IVP PRN ×3 (02:16→17:52)
--- NOTE | 2018-07-06 07:36 | Hospitalist Progress Note ---
Subjective Progress Notes Subjective The patient is unresponsive. Physical Exam Vital Signs Date Time Temp Pulse Resp B/P (MAP) Pulse Ox O2 Delivery O2 Flow Rate FiO2 07/05/18 21:07 96 Nasal Cannula 3.0 07/05/18 13:46 98.1 95 22 126/115 (119) Intake and Output 07/06/18 06:59 Intake Total 1000 ml Output Total 790 ml Balance 210 ml Intake Oral 0 ml IV Total 1000 ml Output Urine Total 790 ml General Appearance: Other (Unresponsive. Increased work of breathing noted.) Cardiovascular: Other (Tachy, regular.) Respiratory: Other (Diminished breath sounds anteriorly.) GI: Soft and Non-Tender, Other (Bowel sounds quiet.) Extremities: Warm, Perfused, Other (No edema.) Integumentary: Scaly / Dry Skin Result Diagram: 07/05/1893207/05/18932 Monitor Interpretation: Sinus Tachycardia Assessment and Plan Problems: (1) Aspiration pneumonia Status: Acute Assessment & Plan: His chest x-ray does show new interstitial changes in the right lower lung. He received a dose of antibiotics in the emergency room, but the family has now requested comfort measures only. (2) End of life care Assessment & Plan: At the family's request we have placed him on comfort measures. Dilaudid and lorazepam have been ordered. The family is interested in the hospice house, but are also open to other arrangements, but they do not believe that they would be able to care for him at home. (3) Esophageal cancer, stage IV Status: Chronic Time Spent on Plan of Care: < 30 min Exam Sepsis Risk: Severe Sepsis Risk Problem Qualifiers (1) Aspiration pneumonia: Aspiration pneumonia type: unspecified Laterality: right Lung location: unspecified part of lung Qualified Codes: J69.0 - Pneumonitis due to inhalation of food and vomit CHARLES TEAGUE MD Jul 06, 2018 07:36
[2018-07-06 08:07] VITALS: BP 141/80
--- NOTE | 2018-07-06 10:20 | Medical Nutrition Therapy ---
Nutrition Anthropometrics Height (Inches): 67.00 Height (Calculated Centimeters: [phone] Weight (Pounds): 128 Weight (Calculated Kilograms): 58.060 Omar Nutrition Score: Very Poor Omar Nutrition Risk Score: 11 Dietary Referral Nutrition Risk Factors: Unplanned Loss >10lbs Nutrition Risk Comment: Physical Findings Physical Appearance: Skin Appearance Skin Appearance: Edema Edema Location Modifier: Both Edema Location: Ankle Type of Edema: Degree of Edema: 1+ Gastrointestinal Symptoms GI Symtoms: Appetite Changes Tube Present: Bowel Sounds: Recent Bowel Pattern: Stool Characteristics: Nutritional Diagnosis Nutritional Risk Acuity 1: Fail to Thrive Nutritional Risk Acuity 2: Head/Neck/GI Cancer Nutritional Risk Acuity 3: %IBW 81-89%, GERD Past Medical History: COPD, CAD, dysphagia, HTN, GERD, hypercholesterolemia, esophageal cancer stage 4, adult failure to thrive Nutritional Acuity: 1-High Nutrition Diagnosis: Inadequate Food Intake Nutrition Etiology: End of Life Care Nutrition Problem/Etiology/Sym: Inadequate food intake as realted to end of life care as evidenced by stage 4 cancer, failure to thrive Energy Requirement: 2161 (m st jeor X 1.1 X 1.5 increased due to cancer dx) Protein Requirement: 69 (1.2 g protein/kg increased due to cancer) Fluid Requirement: 1450 (25 mL/kg) Diet Type: Diet as Tolerated BAUDILIO/REG Nutrition Monitoring & Eval Nutrition Goals: Eat 50-100% Meal, Drink > 2 liters/day RD Patient Assessment Time: [address] Assessment Type: RD Assessment Patient Nutrition Acuity: 1-High Follow Up Date: Jul 08, 2018 Nutritional Comment: Pt admitted due to altered mental status. Pt hx of esophageal cancer IV, adult failure to thrive, HTN, GERD, COPD. Dx iwth aspiration pneumonia and end of life care. Pt on BAUDILIO with no reported intakes. BUN of 5, creatinine of 0.60 are low. Random glucose of 124 is slightly elevated. Lactate of 4.1 is high, AST of 40 is high, and albumin of 3.4 is low. Monitor for intakes and comfort. -MELANIE CEVALLOS Jul 06, 2018 10:19
[2018-07-07] MEDS: LORazepam 2 MG/ML VIAL IVP PRN ×2 (00:37→05:29)
[2018-07-07] MEDS: HYDROmorphone HCL 2 MG/ML SDV IVP PRN (02:45)
[2018-07-07 05:34] VITALS: BP 139/73
--- NOTE | 2018-07-07 10:36 | Death Summary ---
Pronounced Date: Jul 07, 2018 Pronounced Time: 09:36 Preliminary Cause of : Aspiration pneumonia due to Stage IV esophageal cancer Assessment: Hypertension COPD Coronary artery disease History of Present Illness Please see admission history and physical for details. Hospital Course The patient was admitted to the medical floor with diagnosis of probable aspiration pneumonia. The patient and family noted that the patient's functional status had significantly declined over the past several weeks due to metastatic esophageal cancer. The patient had been in a lot more pain as well. The patient and his family decided to transition into comfort care. He did receive one dose of antibiotics in the ER. He was treated with pain medications and Ativan prn. He appeared to be comfortable with family by his side. He on 07/07/18 at 0936. Copies to: JULIANNA KHOURY MD; ENZO SAMSON DO; JOSE BETANCOURT MD ; CHARLES TEAGUE MD Jul 07, 2018 10:36
--- NOTE | 2018-07-07 10:52 | NUR ---
Donor [place] - contacted patient's brother David, informed that Bill was eligible to donate organs, specifically the eyes. David stated "we can't do this right now, my son is too emotional and doesn't want to talk to anyone and he is who my brother told of his wishes". Explained the procedure and he adamantly declined pursuing organ donation at this time. Condolences voiced.
[2018-07-07] MEDS ORDERED: INFLUENZA VIRUS VAC 0.5ML SYR IM ONLY ONE (14:50)
== END 2018-07-07 13:00 | disposition expired | DRG 178 ==
LOC: ER 09:23 → MED 13:18
PROVIDERS: ADMIT Family Medicine; ATTEND Family Medicine
DX: J69.0 Pneumonitis due to inhalation of food and vomit (principal); C15.9 Malignant neoplasm of esophagus, unspecified; R09.02 Hypoxemia; Z51.5 Encounter for palliative care; R06.03 Acute respiratory distress; R53.1 Weakness; G89.29 Other chronic pain; R62.7 Adult failure to thrive; I10 Essential (primary) hypertension; K21.9 Gastro-esophageal reflux disease without esophagitis; J44.9 Chronic obstructive pulmonary disease, unspecified; I25.10 Atherosclerotic heart disease of native coronary artery without angina pectoris; Z87.891 Personal history of nicotine dependence; Z88.5 Allergy status to narcotic agent; Z68.20 Body mass index [BMI] 20.0-20.9, adult
CPT/HCPCS: 70450; 71045; 82040; 82247; 82310; 82374; 82435; 82565; 82947; 83605; 83690; 84075; 84132; 84155; 84295; 84450; 84460; 84484; 84520; 85025; 85610; 85730; 87502; 93005; 94640; C1758; J0692; J1170; J2060; J2930; J3490; J7030

== ENCOUNTER → 2018-07-05 | Outpatient (CLI) | payer MEDICARE ==
[2018-06-21 09:05] VITALS: BMI 19.3
[~2018-07-05] MED LIST changes: -ALTEPLASE RECOMB 2 MG VIAL IVP PRN; -DEXAMETHASONE IVP PRN; -FAMOTIDINE 20 MG/50 ML PREMIX IVPB ONE; -IOPAMIDOL 76% 75 ML INFUS BTL 75 ML ONE; -KCL/NS* 20 MEQ/1000 ML PREMIX 1,000 ML IV ONE; -NS 0.9% IVP PRN; -NS(*) 0.9% 100 ML BAG 100 ML IVPB PRN; -NS(*) 0.9% 1000 ML BAG 1,000 ML IV ONE; -WATER FOR INJ,STERILE 20 ML IVP PRN
== END ==
LOC: AMB 09:05
PROVIDERS: ATTEND Nurse Practitioner
DX: R06.00 Dyspnea, unspecified (principal); R09.02 Hypoxemia; R41.82 Altered mental status, unspecified; J44.9 Chronic obstructive pulmonary disease, unspecified; C15.9 Malignant neoplasm of esophagus, unspecified
CPT/HCPCS: A0425; A0429